=== PATIENT | female | born 1965 | race Caucasian/White ===

== ENCOUNTER 2021-03-14 08:14 | Inpatient (IN) | payer SELFPAY ==
[2021-03-14] MEDS ORDERED: EPINEPHrine 1 MG/10 ML Abboject SYRINGE ONE (08:22)
[2021-03-14] MEDS ORDERED: Fentanyl CADD 100 ML IV SCH (08:45)
[2021-03-14 09:05] LABS: Hemoglobin 12.4 g/dL (12.0-16.0); Mean Corpuscular HGB CONC 34.8 g/dL (32.0-36.0); Mean Corpuscular Hemoglobin 31.4 pg (27.0-31.0); Mean Corpuscular Volume 90.3 fL (78.0-98.0); Red Blood Cell (RBC) Count 3.95 mill/uL (4.20-5.40); White Blood Cell (WBC) Count 8.2 thou/uL (4.8-10.8)
[2021-03-14 09:15] LABS: ALT (SGPT) 57 U/L (8-55); AST (SGOT) 87 U/L (5-34); Albumin 3.5 g/dL (3.4-4.8); Alkaline Phosphatase 55 U/L (40-110); Anion Gap 15 mmol/L (10-20); BUN (Urea Nitrogen) 10 mg/dL (9.8-20.1); Bilirubin, Total 0.6 mg/dL (0.2-1.2); Calc. Creatinine Clearance 0 mL/min (70-130); Calcium 8.7 mg/dL (7.8-10.44); Carbon Dioxide 34 mmol/L (23-31); Chloride 76 mmol/L (98-107); Globulin 3.3 g/dL (2.4-3.5); Protein, Total 6.8 g/dL (5.8-8.1)
[2021-03-14 09:22] LABS: Analyzer IN Cardio ER; Base Excess (BEa) 7.2 mEq/L (-2.0 to +3.0); CO2 Tension 46.1 mmHg (35.0-45.0); Calcium, Ionized (arterial) 1.02 mmol/L (1.12-1.30); Carboxyhemoglobin (COHb) 0.1 gm% (0.0-3.0); Hemoglobin (Hb) 11.8 g/dL (12.0-16.0); O2 Tension (PaO2), arterial 127.1 mmHg (> 70.0); Potassium - ABG Lab 2.52 mmol/L (3.70-5.30); pH, Arterial 7.46 (7.35-7.45)
[2021-03-14 09:25] LABS: ALV-art Gradient 314.375 mmHg (0-20); Puncture Site RBA
[2021-03-14 09:27] LABS: #Monocytes 0.4 thou/uL (0.11-0.59); #Neutrophils 6.8 thou/uL (1.40-6.50); %Basophils 0.2 % (0.0-1.0); %Eosinophils 0.1 % (0.0-10.0); %Lymphocytes 11.8 % (21.0-51.0); %Monocytes 5.2 % (0.0-10.0); %Neutrophils 82.7 % (42.0-75.0); Large Platelets MODERATE; MDiff Complete? YES; Mean Platelet Volume 11.1 fL (7.4-10.4); Platelet Count 106 thou/uL (130-400); Platelet Morphology Comment Appears Decreased; RBC Morphology Normal
[2021-03-14 09:33] LABS: Glucose 173 mg/dL (83-110); Sodium 122 mmol/L (136-145)
[2021-03-14 09:43] LABS: CKMB 19.4 ng/mL (0-6.6)
[2021-03-14] MEDS ORDERED: Ondansetron PF 4 MG/2 ML Vial IVP PRN (11:06)
[2021-03-14] MEDS ORDERED: Sodium Chloride 0.9% 1,000 ML IV SCH (11:15)
[2021-03-14] MEDS ORDERED: DISCONTINUE PREVIOUS NARCOTIC PAIN MEDICATIONS AND BENZODIAZEPINES FS SCH (11:15)
[2021-03-14] MEDS ORDERED: Morphine 2 MG/ML VIAL SLOW IVP PRN (11:15)
[2021-03-14] MEDS ORDERED: Fentanyl BOLUS 250 ML IVPB PRN (11:15)
[2021-03-14] MEDS ORDERED: Ventilator Sedation Protocol 1 EACH FS SCH (11:15)
[2021-03-14] MEDS ORDERED: Propofol BOLUS 1,000 MG/100 ML VIAL IV PRN (11:15)
[2021-03-14 11:29] LABS: SARS-CoV-2 NAA Rapid Test DETECTED (NotDetected)
[2021-03-14 12:01] LABS: Bilirubin Negative (Negative); Blood, Urine Trace (Negative); Clarity Clear (Clear); Glucose, Urine (Dipstick) Normal (Negative); Ketone, Urine 60 mg/dL (Negative); Leukocyte Negative Leu/uL (Negative); Nitrite Negative (Negative); Protein, Urine (Dipstick) 70 mg/dL (Neg-Trace); RBC/HPF 0-3 HPF (0-3); Specific Gravity, Urine 1.022 (1.002-1.036); pH, Urine 6.5 (5.0-9.0)
[2021-03-14 12:02] LABS: Bacteria/HPF None Seen HPF (None Seen); Squamous Epithelial 0-3 HPF (0-3)
[2021-03-14 12:07] LABS: Lactic Acid 2.6 mmol/L (0.5-2.2)
[2021-03-14] MEDS ORDERED: Cefepime 2 GM VIAL ONE (14:43)
[2021-03-14] MEDS ORDERED: Dextrose 50% Abboject 50 ML SYRINGE ONE (14:43)
[2021-03-14] MEDS ORDERED: methylPREDNISolone Sod Succ 40 MG VIAL ONE (14:44)
[2021-03-14] MEDS: Cefepime 2 GM in Sodium Chloride 0.9% 100 ML IVPB SCH ×2 (14:48→22:32)
[2021-03-14] MEDS: NS 0.9% w/ 20 MEQ KCL 1,000 ML/1,000 ML BAG IV SCH ×2 (14:49→16:07)
[2021-03-14] MEDS: methylPREDNISolone Sod Succ 40 MG VIAL IVP SCH ×3 (14:49→22:33)
[2021-03-14] MEDS ORDERED: Vecuronium 10 MG VIAL ONE (15:17)
[2021-03-14 15:26] LABS: Anion Gap 11 mmol/L (10-20); BUN (Urea Nitrogen) 14 mg/dL (9.8-20.1); Calc. Creatinine Clearance 0 mL/min (70-130); Calcium 8.2 mg/dL (7.8-10.44); Carbon Dioxide 35 mmol/L (22-29); Chloride 79 mmol/L (98-107); Glucose 256 mg/dL (70-105); Sodium 122 mmol/L (136-145)
[2021-03-14 15:40] LABS: Potassium 2.9 mmol/L (3.5-5.1)
[2021-03-14] MEDS ORDERED: ALBUTEROL PO SCH (15:45)
[2021-03-14] MEDS ORDERED: Electrolyte Replacement Protocol 1 EACH FS ONE (16:03)
[2021-03-14] MEDS: Lorazepam 2 MG/ML VIAL SLOW IVP PRN (16:08)
[2021-03-14] MEDS ORDERED: Norepinephrine 8 MG/0.9% NS 250 ML ONE (16:09)
[2021-03-14] MEDS ORDERED: Potassium Chloride 40 MEQ in Premix Bag 1 BAG IVPB SCH ×4 (16:15→21:00)
[2021-03-14] MEDS ORDERED: Norepinephrine 8 MG/0.9% NS 250 ML IVPB SCH (16:15)
[2021-03-14] MEDS ORDERED: Electrolyte Replacement Protocol FS PRN (16:30)
[2021-03-14] MEDS ORDERED: Potassium Chloride 40 MEQ in Sodium Chloride 0.9% 250 ML 250 ML IVPB SCH (16:30)
[2021-03-14 17:52] LABS: Actual Bicarbonate (HCO3a) 33.5 mEq/L (22-28); Base Excess (BEa) 6.8 mEq/L (-2.0 to +3.0); CO2 Tension 58.4 mmHg (35.0-45.0); Calcium, Ionized (arterial) 1.05 mmol/L (1.12-1.30); Hemoglobin (Hb) 11.7 g/dL (12.0-16.0); O2 Tension (PaO2), arterial 74.1 mmHg (80.0-100.0); Potassium - ABG Lab 2.84 mmol/L (3.70-5.30); pH, Arterial 7.38 (7.35-7.45)
[2021-03-14 18:27] LABS: Puncture Site LRA
[2021-03-14] MEDS: Vecuronium 10 MG VIAL IVP PRN (19:25)
[2021-03-14] MEDS ORDERED: Fentanyl CADD 100 ML ONE (20:12)
[2021-03-14] MEDS: Fentanyl CADD 100 ML IV SCH (20:33)
[2021-03-14 22:18] LABS: Potassium 3.6 mmol/L (3.5-5.1)
[2021-03-14] MEDS: Propofol 1,000 MG/100 ML VIAL IV PRN (22:33)
[2021-03-15] MEDS: Vecuronium 10 MG VIAL IVP PRN ×5 (00:30→20:53)
[2021-03-15] MEDS: NS 0.9% w/ 20 MEQ KCL 1,000 ML/1,000 ML BAG IV SCH ×3 (02:27→22:14)
[2021-03-15 04:16] LABS: #Basophils 0.1 thou/uL (0.0-0.2); #Lymphocytes 0.3 thou/uL (1.20-3.40); #Monocytes 0.5 thou/uL (0.11-0.59); #Neutrophils 9.3 thou/uL (1.40-6.50); %Basophils 0.9 % (0.0-1.0); %Eosinophils 0.1 % (0.0-10.0); %Lymphocytes 2.7 % (21.0-51.0); %Monocytes 4.5 % (0.0-10.0); %Neutrophils 91.9 % (42.0-75.0); Hemoglobin 11.2 g/dL (12.0-16.0); Mean Corpuscular HGB CONC 33.5 g/dL (32.0-36.0); Mean Corpuscular Hemoglobin 30.7 pg (27.0-31.0); Mean Corpuscular Volume 91.6 fL (78.0-98.0); Mean Platelet Volume 10.2 fL (7.4-10.4); Platelet Count 143 thou/uL (130-400); Red Blood Cell (RBC) Count 3.66 mill/uL (4.20-5.40); White Blood Cell (WBC) Count 10.1 thou/uL (4.8-10.8)
[2021-03-15 04:36] LABS: Anion Gap 11 mmol/L (10-20); BUN (Urea Nitrogen) 12 mg/dL (9.8-20.1); Calc. Creatinine Clearance 145 mL/min (70-130); Calcium 8.2 mg/dL (7.8-10.44); Carbon Dioxide 33 mmol/L (22-29); Chloride 89 mmol/L (98-107); Glucose 223 mg/dL (70-105); Potassium 3.6 mmol/L (3.5-5.1); Sodium 129 mmol/L (136-145)
[2021-03-15] MEDS: methylPREDNISolone Sod Succ 40 MG VIAL IVP SCH ×4 (04:57→23:26)
[2021-03-15] MEDS: Propofol 1,000 MG/100 ML VIAL IV PRN ×3 (05:12→22:13)
[2021-03-15 07:19] LABS: Actual Bicarbonate (HCO3a) 28.9 mEq/L (22-28); Base Excess (BEa) 2.9 mEq/L (-2.0 to +3.0); CO2 Tension 50.9 mmHg (35.0-45.0); Calcium, Ionized (arterial) 1.11 mmol/L (1.12-1.30); Carboxyhemoglobin (COHb) 0.3 gm% (0.0-3.0); Hemoglobin (Hb) 11.3 g/dL (12.0-16.0); O2 Tension (PaO2), arterial 63.4 mmHg (80.0-100.0); Potassium - ABG Lab 3.69 mmol/L (3.70-5.30); pH, Arterial 7.37 (7.35-7.45)
[2021-03-15 07:32] LABS: ALV-art Gradient 229.475 mmHg (0-20); Puncture Site LRA
[2021-03-15] MEDS ORDERED: Pantoprazole 40 MG VIAL IVP SCH (09:00)
[2021-03-15] MEDS: Enoxaparin Sodium 40 MG/0.4 ML SYRINGE SC SCH (09:50)
[2021-03-15] MEDS ORDERED: Fentanyl CADD 100 ML ONE ×2 (10:10→22:17)
[2021-03-15] MEDS: Fentanyl CADD 100 ML IV SCH ×2 (10:12→22:20)
[2021-03-15] MEDS: Cefepime 2 GM in Sodium Chloride 0.9% 100 ML IVPB SCH ×2 (12:06→23:26)
[2021-03-15] MEDS ORDERED: HumaLOG 300 UNITS/3 ML VIAL SC PRN (17:28)
[2021-03-15] MEDS ORDERED: Dextrose 50% Abboject 50 ML SYRINGE SLOW IVP PRN (17:28)
[2021-03-15] MEDS ORDERED: Dextrose 5% in Water 1,000 ML IV PRN (17:28)
[2021-03-15] MEDS: Cholecalciferol 1,000 UNITS (25 MCG) TAB PO SCH (20:38)
[2021-03-15] MEDS: Zinc Sulfate 220 MG CAP PO SCH (20:38)
[2021-03-15] MEDS: HumaLOG 300 UNITS/3 ML VIAL SC PRN (22:43)
[2021-03-16] MEDS: Vecuronium 10 MG VIAL IVP PRN ×5 (01:19→20:05)
[2021-03-16] MEDS: methylPREDNISolone Sod Succ 40 MG VIAL IVP SCH ×4 (04:27→19:57)
[2021-03-16 04:46] LABS: #Lymphocytes 0.4 thou/uL (1.20-3.40); #Monocytes 0.4 thou/uL (0.11-0.59); #Neutrophils 9.3 thou/uL (1.40-6.50); %Eosinophils 0.1 % (0.0-10.0); %Lymphocytes 3.9 % (21.0-51.0); %Monocytes 3.9 % (0.0-10.0); %Neutrophils 92.1 % (42.0-75.0); Mean Corpuscular HGB CONC 34.2 g/dL (32.0-36.0); Mean Corpuscular Hemoglobin 32.1 pg (27.0-31.0); Mean Platelet Volume 9.5 fL (7.4-10.4); Platelet Count 143 thou/uL (130-400); RBC Distribution Width 12.2 % (11.5-14.5); White Blood Cell (WBC) Count 10.1 thou/uL (4.8-10.8)
[2021-03-16 05:10] LABS: Anion Gap 6 mmol/L (10-20); BUN (Urea Nitrogen) 15 mg/dL (9.8-20.1); Calc. Creatinine Clearance 152 mL/min (70-130); Carbon Dioxide 32 mmol/L (22-29); Chloride 96 mmol/L (98-107); Glucose 150 mg/dL (70-105); Magnesium 2.3 mg/dL (1.6-2.6); Potassium 4.2 mmol/L (3.5-5.1); Sodium 130 mmol/L (136-145)
[2021-03-16 05:14] LABS: Phosphorus 1.5 mg/dL (2.3-4.7)
[2021-03-16] MEDS: Propofol 1,000 MG/100 ML VIAL IV PRN ×3 (05:29→21:55)
[2021-03-16 06:03] LABS: Hemoglobin A1c 5.3 % (4.0-6.0)
[2021-03-16] MEDS: HumaLOG 300 UNITS/3 ML VIAL SC PRN ×4 (06:19→22:39)
[2021-03-16] MEDS ORDERED: Potassium Phosphate 22 MMOL in Sodium Chloride 0.9% 250 ML 250 ML IVPB SCH (06:30)
[2021-03-16 07:10] LABS: Actual Bicarbonate (HCO3a) 28.8 mEq/L (22-28); Calcium, Ionized (arterial) 1.15 mmol/L (1.12-1.30); Carboxyhemoglobin (COHb) 0.3 gm% (0.0-3.0); Hemoglobin (Hb) 12.3 g/dL (12.0-16.0); O2 Tension (PaO2), arterial 75.1 mmHg (80.0-100.0); Potassium - ABG Lab 4.43 mmol/L (3.70-5.30); pH, Arterial 7.29 (7.35-7.45)
[2021-03-16 07:13] LABS: CO2 Tension 61.6 mmHg (35.0-45.0)
[2021-03-16 07:14] LABS: Puncture Site LRA
[2021-03-16] MEDS ORDERED: Fentanyl CADD 0 ML ONE ×2 (07:32→07:33)
[2021-03-16] MEDS: Fentanyl CADD 100 ML IV SCH ×2 (07:39→18:51)
[2021-03-16] MEDS: NS 0.9% w/ 20 MEQ KCL 1,000 ML/1,000 ML BAG IV SCH ×2 (07:40→18:38)
[2021-03-16] MEDS: Enoxaparin Sodium 40 MG/0.4 ML SYRINGE SC SCH (09:45)
[2021-03-16] MEDS: Ascorbic Acid 500 mg Chewable Tablet PO SCH (09:46)
[2021-03-16] MEDS: Pantoprazole 40 MG GRANULES PACKET PO SCH (09:49)
[2021-03-16] MEDS: Cefepime 2 GM in Sodium Chloride 0.9% 100 ML IVPB SCH (13:22)
[2021-03-16] MEDS ORDERED: Fentanyl CADD 100 ML ONE ×2 (18:20)
[2021-03-16] MEDS: Montelukast Sodium 10 mg Tablet PER TUBE SCH (19:57)
[2021-03-16] MEDS: Cholecalciferol 1,000 UNITS (25 MCG) TAB PO SCH (19:57)
[2021-03-16] MEDS: Zinc Sulfate 220 MG CAP PO SCH (19:57)
[2021-03-17] MEDS: Vecuronium 10 MG VIAL IVP PRN ×2 (02:08→04:54)
[2021-03-17] MEDS: Cefepime 2 GM in Sodium Chloride 0.9% 100 ML IVPB SCH ×3 (02:08→23:14)
[2021-03-17] MEDS: methylPREDNISolone Sod Succ 40 MG VIAL IVP SCH ×4 (03:19→21:33)
[2021-03-17] MEDS: NS 0.9% w/ 20 MEQ KCL 1,000 ML/1,000 ML BAG IV SCH (03:21)
[2021-03-17 04:16] LABS: Anion Gap 7 mmol/L (10-20); BUN (Urea Nitrogen) 19 mg/dL (9.8-20.1); CRP (Inflammatory) 0.65 mg/dL (= or < 0.5); Calc. Creatinine Clearance 160 mL/min (70-130); Calcium 7.8 mg/dL (7.8-10.44); Carbon Dioxide 29 mmol/L (22-29); Chloride 102 mmol/L (98-107); Glucose 165 mg/dL (70-105); Potassium 5.3 mmol/L (3.5-5.1); Sodium 133 mmol/L (136-145)
[2021-03-17 04:25] LABS: Phosphorus 1.3 mg/dL (2.3-4.7)
[2021-03-17] MEDS ORDERED: Fentanyl CADD 100 ML ONE ×2 (04:36→16:22)
[2021-03-17] MEDS: Fentanyl CADD 100 ML IV SCH ×2 (04:38→16:29)
[2021-03-17 04:43] LABS: Band 5 % (5-11); Hemoglobin 9.7 g/dL (12.0-16.0); Lymphocytes 2 % (21-51); MDiff Complete? YES; Mean Corpuscular HGB CONC 33.4 g/dL (32.0-36.0); Mean Corpuscular Hemoglobin 31.9 pg (27.0-31.0); Mean Corpuscular Volume 95.5 fL (78.0-98.0); Mean Platelet Volume 9.1 fL (7.4-10.4); Metamyelocyte 1 % (0-0); Monocytes 4 % (0-10); Myelocyte 1 % (0-0); Neutrophil 87 % (42-75); Platelet Count 158 thou/uL (130-400); Platelet Morphology Comment Appears Adequate; RBC Distribution Width 12.6 % (11.5-14.5); RBC Morphology Normal; Red Blood Cell (RBC) Count 3.03 mill/uL (4.20-5.40); White Blood Cell (WBC) Count 8.9 thou/uL (4.8-10.8)
[2021-03-17] MEDS: Propofol 1,000 MG/100 ML VIAL IV PRN ×3 (04:53→19:43)
[2021-03-17 07:29] LABS: Actual Bicarbonate (HCO3a) 25.7 mEq/L (22-28); Base Excess (BEa) -0.4 mEq/L (-2.0 to +3.0); CO2 Tension 48.9 mmHg (35.0-45.0); Calcium, Ionized (arterial) 1.14 mmol/L (1.12-1.30); Carboxyhemoglobin (COHb) 0.2 gm% (0.0-3.0); Hemoglobin (Hb) 10.4 g/dL (12.0-16.0); O2 Tension (PaO2), arterial 62.7 mmHg (80.0-100.0); Potassium - ABG Lab 5.38 mmol/L (3.70-5.30); pH, Arterial 7.34 (7.35-7.45)
[2021-03-17 07:40] LABS: Puncture Site RRA
[2021-03-17 07:41] LABS: ALV-art Gradient 154.245 mmHg (0-20)
[2021-03-17] MEDS: Ascorbic Acid 500 mg Chewable Tablet PO SCH (08:32)
[2021-03-17] MEDS: Pantoprazole 40 MG GRANULES PACKET PO SCH (08:32)
[2021-03-17] MEDS: Enoxaparin Sodium 40 MG/0.4 ML SYRINGE SC SCH (08:32)
[2021-03-17] MEDS: HumaLOG 300 UNITS/3 ML VIAL SC PRN (12:42)
[2021-03-17] MEDS: Lorazepam 2 MG/ML VIAL SLOW IVP PRN (14:57)
[2021-03-17] MEDS: Montelukast Sodium 10 mg Tablet PER TUBE SCH (21:33)
[2021-03-17] MEDS: Zinc Sulfate 220 MG CAP PO SCH (21:33)
[2021-03-17] MEDS: Cholecalciferol 1,000 UNITS (25 MCG) TAB PO SCH (21:33)
[2021-03-18] MEDS: methylPREDNISolone Sod Succ 40 MG VIAL IVP SCH ×4 (02:30→22:03)
[2021-03-18] MEDS: Propofol 1,000 MG/100 ML VIAL IV PRN ×3 (03:29→19:50)
[2021-03-18] MEDS: HumaLOG 300 UNITS/3 ML VIAL SC PRN ×2 (03:30→10:17)
[2021-03-18] MEDS ORDERED: Fentanyl CADD 100 ML ONE ×2 (04:57→17:44)
[2021-03-18 05:07] LABS: Band 5 % (5-11); Hemoglobin 10.1 g/dL (12.0-16.0); Lymphocytes 5 % (21-51); MDiff Complete? YES; Mean Corpuscular HGB CONC 32.8 g/dL (32.0-36.0); Mean Corpuscular Hemoglobin 31.7 pg (27.0-31.0); Mean Corpuscular Volume 96.5 fL (78.0-98.0); Mean Platelet Volume 8.9 fL (7.4-10.4); Monocytes 8 % (0-10); Neutrophil 82 % (42-75); Platelet Count 200 thou/uL (130-400); Platelet Morphology Comment Appears Adequate
[2021-03-18 05:09] LABS: Anion Gap 10 mmol/L (10-20); BUN (Urea Nitrogen) 34 mg/dL (9.8-20.1); CRP (Inflammatory) 0.54 mg/dL (= or < 0.5); Calc. Creatinine Clearance 137 mL/min (70-130); Calcium 8.5 mg/dL (7.8-10.44); Carbon Dioxide 29 mmol/L (22-29); Chloride 102 mmol/L (98-107); Glucose 165 mg/dL (70-105); Potassium 6.1 mmol/L (3.5-5.1); Sodium 135 mmol/L (136-145)
[2021-03-18 05:22] LABS: Anion Gap 10 mmol/L (10-20); BUN (Urea Nitrogen) 33 mg/dL (9.8-20.1); Calc. Creatinine Clearance 138 mL/min (70-130); Carbon Dioxide 29 mmol/L (22-29); Chloride 103 mmol/L (98-107); Potassium 6.1 mmol/L (3.5-5.1); Sodium 136 mmol/L (136-145)
[2021-03-18 05:23] LABS: ALT (SGPT) 57 U/L (8-55); AST (SGOT) 36 U/L (5-34); Albumin 3.5 g/dL (3.5-5.0); Alkaline Phosphatase 55 U/L (40-110); Bilirubin, Total 0.5 mg/dL (0.2-1.2); Calcium 8.3 mg/dL (7.8-10.44); Globulin 3.1 g/dL (2.4-3.5); Glucose 169 mg/dL (70-105); Phosphorus 2.8 mg/dL (2.3-4.7); Protein, Total 6.6 g/dL (6.0-8.3)
[2021-03-18] MEDS: Lorazepam 2 MG/ML VIAL SLOW IVP PRN ×3 (07:14→17:48)
[2021-03-18] MEDS: Vecuronium 10 MG VIAL IVP PRN ×3 (07:14→17:48)
[2021-03-18 07:28] LABS: Base Excess (BEa) -0.4 mEq/L (-2.0 to +3.0); Carboxyhemoglobin (COHb) 0.1 gm% (0.0-3.0); Hemoglobin (Hb) 10.6 g/dL (12.0-16.0); O2 Tension (PaO2), arterial 79.3 mmHg (80.0-100.0); Potassium - ABG Lab 5.57 mmol/L (3.70-5.30)
[2021-03-18 07:39] LABS: CO2 Tension 67.3 mmHg (35.0-45.0); Puncture Site RRA; pH, Arterial 7.24 (7.35-7.45)
[2021-03-18 07:40] LABS: ALV-art Gradient 114.645 mmHg (0-20)
[2021-03-18] MEDS: Enoxaparin Sodium 40 MG/0.4 ML SYRINGE SC SCH (08:57)
[2021-03-18] MEDS: Pantoprazole 40 MG GRANULES PACKET PO SCH (08:57)
[2021-03-18] MEDS: Ascorbic Acid 500 mg Chewable Tablet PO SCH (08:57)
[2021-03-18] MEDS: Cefepime 2 GM in Sodium Chloride 0.9% 100 ML IVPB SCH (11:08)
[2021-03-18] MEDS: Fentanyl CADD 100 ML IV SCH (17:48)
[2021-03-18] MEDS: Zinc Sulfate 220 MG CAP PO SCH (21:53)
[2021-03-18] MEDS: Montelukast Sodium 10 mg Tablet PER TUBE SCH (21:53)
[2021-03-18] MEDS: Cholecalciferol 1,000 UNITS (25 MCG) TAB PO SCH (21:53)
[2021-03-19] MEDS: Cefepime 2 GM in Sodium Chloride 0.9% 100 ML IVPB SCH ×3 (01:35→23:18)
[2021-03-19] MEDS: Propofol 1,000 MG/100 ML VIAL IV PRN ×6 (01:37→21:45)
[2021-03-19] MEDS: methylPREDNISolone Sod Succ 40 MG VIAL IVP SCH ×4 (04:02→21:08)
[2021-03-19 05:21] LABS: Phosphorus 2.1 mg/dL (2.3-4.7)
[2021-03-19] MEDS ORDERED: Fentanyl CADD 100 ML ONE ×2 (05:39→16:47)
[2021-03-19 06:33] LABS: ALT (SGPT) 81 U/L (8-55); AST (SGOT) 43 U/L (5-34); Albumin 3.2 g/dL (3.5-5.0); Alkaline Phosphatase 51 U/L (40-110); Anion Gap 10 mmol/L (10-20); BUN (Urea Nitrogen) 41 mg/dL (9.8-20.1); Bilirubin, Total 0.4 mg/dL (0.2-1.2); Calc. Creatinine Clearance 146 mL/min (70-130); Calcium 8.5 mg/dL (7.8-10.44); Carbon Dioxide 31 mmol/L (22-29); Chloride 101 mmol/L (98-107); Globulin 2.8 g/dL (2.4-3.5); Glucose 184 mg/dL (70-105); Potassium 4.5 mmol/L (3.5-5.1); Sodium 137 mmol/L (136-145)
[2021-03-19 07:24] LABS: Actual Bicarbonate (HCO3a) 28.2 mEq/L (22-28); Base Excess (BEa) 3.3 mEq/L (-2.0 to +3.0); CO2 Tension 44.5 mmHg (35.0-45.0); Calcium, Ionized (arterial) 1.17 mmol/L (1.12-1.30); Carboxyhemoglobin (COHb) 0.3 gm% (0.0-3.0); Hemoglobin (Hb) 11.5 g/dL (12.0-16.0); O2 Tension (PaO2), arterial 72.8 mmHg (80.0-100.0); Potassium - ABG Lab 4.76 mmol/L (3.70-5.30); pH, Arterial 7.42 (7.35-7.45)
[2021-03-19 07:37] LABS: ALV-art Gradient 149.645 mmHg (0-20); Puncture Site RRA
[2021-03-19] MEDS: Enoxaparin Sodium 40 MG/0.4 ML SYRINGE SC SCH ×2 (09:58→21:08)
[2021-03-19] MEDS: Ascorbic Acid 500 mg Chewable Tablet PO SCH (09:58)
[2021-03-19] MEDS: Pantoprazole 40 MG GRANULES PACKET PO SCH (09:59)
[2021-03-19] MEDS: HumaLOG 300 UNITS/3 ML VIAL SC PRN ×3 (10:36→21:30)
[2021-03-19] MEDS: Lorazepam 2 MG/ML VIAL SLOW IVP PRN ×2 (14:17→16:09)
[2021-03-19] MEDS: Vecuronium 10 MG VIAL IVP PRN ×3 (14:18→21:07)
[2021-03-19] MEDS: Fentanyl CADD 100 ML IV SCH (16:49)
[2021-03-19] MEDS: Zinc Sulfate 220 MG CAP PO SCH (21:08)
[2021-03-19] MEDS: Cholecalciferol 1,000 UNITS (25 MCG) TAB PO SCH (21:08)
[2021-03-19] MEDS: Montelukast Sodium 10 mg Tablet PER TUBE SCH (21:09)
[2021-03-20] MEDS: Vecuronium 10 MG VIAL IVP PRN ×5 (00:20→20:42)
[2021-03-20] MEDS: Propofol 1,000 MG/100 ML VIAL IV PRN ×6 (02:07→20:42)
[2021-03-20] MEDS: methylPREDNISolone Sod Succ 40 MG VIAL IVP SCH ×4 (02:07→20:43)
[2021-03-20] MEDS ORDERED: Fentanyl CADD 100 ML ONE ×2 (03:26→15:08)
[2021-03-20] MEDS: Fentanyl CADD 100 ML IV SCH ×2 (03:32→15:13)
[2021-03-20] MEDS: HumaLOG 300 UNITS/3 ML VIAL SC PRN ×4 (05:03→22:04)
[2021-03-20 05:47] LABS: ALT (SGPT) 71 U/L (8-55); AST (SGOT) 26 U/L (5-34); Albumin 3.1 g/dL (3.5-5.0); Alkaline Phosphatase 42 U/L (40-110); Anion Gap 12 mmol/L (10-20); BUN (Urea Nitrogen) 43 mg/dL (9.8-20.1); Bilirubin, Total 0.3 mg/dL (0.2-1.2); CRP (Inflammatory) Less than 0.50 mg/dL (= or < 0.5); Calc. Creatinine Clearance 158 mL/min (70-130); Calcium 8.5 mg/dL (7.8-10.44); Carbon Dioxide 32 mmol/L (22-29); Chloride 99 mmol/L (98-107); Globulin 2.7 g/dL (2.4-3.5); Glucose 187 mg/dL (70-105); Potassium 4.7 mmol/L (3.5-5.1); Protein, Total 5.8 g/dL (6.0-8.3); Sodium 138 mmol/L (136-145)
[2021-03-20] MEDS ORDERED: Furosemide 40 MG/4 ML VIAL SLOW IVP SCH (07:45)
[2021-03-20] MEDS: Pantoprazole 40 MG GRANULES PACKET PO SCH (08:16)
[2021-03-20] MEDS: Ascorbic Acid 500 mg Chewable Tablet PO SCH (08:16)
[2021-03-20] MEDS: Enoxaparin Sodium 40 MG/0.4 ML SYRINGE SC SCH ×2 (08:17→20:42)
[2021-03-20 08:29] LABS: Actual Bicarbonate (HCO3a) 32.3 mEq/L (22-28); Base Excess (BEa) 7.2 mEq/L (-2.0 to +3.0); CO2 Tension 48.7 mmHg (35.0-45.0); Calcium, Ionized (arterial) 1.16 mmol/L (1.12-1.30); Carboxyhemoglobin (COHb) 0.3 gm% (0.0-3.0); Hemoglobin (Hb) 9.5 g/dL (12.0-16.0); O2 Tension (PaO2), arterial 75.3 mmHg (80.0-100.0); Potassium - ABG Lab 4.91 mmol/L (3.70-5.30); pH, Arterial 7.44 (7.35-7.45)
[2021-03-20 09:01] LABS: ALV-art Gradient 149.025 mmHg (0-20); Puncture Site LRA
[2021-03-20] MEDS: Lorazepam 2 MG/ML VIAL SLOW IVP PRN ×4 (10:05→16:40)
[2021-03-20] MEDS: Cefepime 2 GM in Sodium Chloride 0.9% 100 ML IVPB SCH ×2 (11:24→23:18)
[2021-03-20] MEDS: Montelukast Sodium 10 mg Tablet PER TUBE SCH (20:42)
[2021-03-20] MEDS: Zinc Sulfate 220 MG CAP PO SCH (20:42)
[2021-03-20] MEDS: Cholecalciferol 1,000 UNITS (25 MCG) TAB PO SCH (20:55)
[2021-03-21] MEDS: Propofol 1,000 MG/100 ML VIAL IV PRN ×7 (00:02→21:54)
[2021-03-21] MEDS: Vecuronium 10 MG VIAL IVP PRN (00:02)
[2021-03-21] MEDS ORDERED: Fentanyl CADD 100 ML ONE ×3 (01:35→21:02)
[2021-03-21] MEDS: Fentanyl CADD 100 ML IV SCH ×3 (01:56→21:15)
[2021-03-21] MEDS: methylPREDNISolone Sod Succ 40 MG VIAL IVP SCH ×4 (03:56→20:20)
[2021-03-21] MEDS: HumaLOG 300 UNITS/3 ML VIAL SC PRN (04:36)
[2021-03-21 05:31] LABS: Band 9 % (5-11); Hemoglobin 9.7 g/dL (12.0-16.0); Lymphocytes 11 % (21-51); MDiff Complete? YES; Mean Corpuscular HGB CONC 33.3 g/dL (32.0-36.0); Mean Corpuscular Volume 96.1 fL (78.0-98.0); Mean Platelet Volume 8.5 fL (7.4-10.4); Metamyelocyte 3 % (0-0); Monocytes 7 % (0-10); Myelocyte 3 % (0-0); Neutrophil 65 % (42-75); Platelet Count 237 thou/uL (130-400); Platelet Morphology Comment Appears Adequate; RBC Distribution Width 13.4 % (11.5-14.5); RBC Morphology Normal; Reactive Lymphocytes 2 % (0-10); Red Blood Cell (RBC) Count 3.02 mill/uL (4.20-5.40); White Blood Cell (WBC) Count 8.4 thou/uL (4.8-10.8)
[2021-03-21 05:55] LABS: ALT (SGPT) 91 U/L (8-55); AST (SGOT) 47 U/L (5-34); Albumin 3.2 g/dL (3.5-5.0); Alkaline Phosphatase 48 U/L (40-110); Anion Gap 11 mmol/L (10-20); BUN (Urea Nitrogen) 43 mg/dL (9.8-20.1); Bilirubin, Total 0.4 mg/dL (0.2-1.2); CRP (Inflammatory) Less than 0.50 mg/dL (= or < 0.5); Calc. Creatinine Clearance 157 mL/min (70-130); Calcium 8.7 mg/dL (7.8-10.44); Carbon Dioxide 35 mmol/L (22-29); Chloride 98 mmol/L (98-107); Globulin 2.7 g/dL (2.4-3.5); Glucose 164 mg/dL (70-105); Potassium 4.5 mmol/L (3.5-5.1); Protein, Total 5.9 g/dL (6.0-8.3); Sodium 139 mmol/L (136-145)
[2021-03-21] MEDS ORDERED: Budesonide 0.5 MG/2 ML NEB NEB SCH (08:00)
[2021-03-21 08:25] LABS: Base Excess (BEa) 7.7 mEq/L (-2.0 to +3.0); CO2 Tension 59.9 mmHg (35.0-45.0); Calcium, Ionized (arterial) 1.15 mmol/L (1.12-1.30); Carboxyhemoglobin (COHb) 0.9 gm% (0.0-3.0); O2 Tension (PaO2), arterial 60.6 mmHg (80.0-100.0); Potassium - ABG Lab 4.81 mmol/L (3.70-5.30); pH, Arterial 7.39 (7.35-7.45)
[2021-03-21 08:48] LABS: Puncture Site LBA
[2021-03-21 08:49] LABS: ALV-art Gradient 149.725 mmHg (0-20)
[2021-03-21] MEDS: Enoxaparin Sodium 40 MG/0.4 ML SYRINGE SC SCH ×2 (09:44→19:33)
[2021-03-21] MEDS: Ascorbic Acid 500 mg Chewable Tablet PO SCH (09:45)
[2021-03-21] MEDS: Pantoprazole 40 MG GRANULES PACKET PO SCH (09:45)
[2021-03-21] MEDS: Lorazepam 2 MG/ML VIAL SLOW IVP PRN ×5 (11:13→21:37)
[2021-03-21] MEDS: Budesonide 0.5 MG/2 ML NEB NEB SCH (18:40)
[2021-03-21] MEDS: Zinc Sulfate 220 MG CAP PO SCH (19:33)
[2021-03-21] MEDS: Cholecalciferol 1,000 UNITS (25 MCG) TAB PO SCH (19:33)
[2021-03-21] MEDS: Montelukast Sodium 10 mg Tablet PER TUBE SCH (19:33)
[2021-03-22] MEDS: Propofol 1,000 MG/100 ML VIAL IV PRN ×6 (01:32→22:33)
[2021-03-22] MEDS: methylPREDNISolone Sod Succ 40 MG VIAL IVP SCH ×4 (03:31→20:24)
[2021-03-22] MEDS ORDERED: Fentanyl CADD 100 ML ONE ×2 (06:31→16:54)
[2021-03-22] MEDS: Fentanyl CADD 100 ML IV SCH (07:02)
[2021-03-22] MEDS: Budesonide 0.5 MG/2 ML NEB NEB SCH ×2 (07:06→18:10)
[2021-03-22 07:10] LABS: Actual Bicarbonate (HCO3a) 37.2 mEq/L (22-28); Base Excess (BEa) 11.6 mEq/L (-2.0 to +3.0); CO2 Tension 54.4 mmHg (35.0-45.0); Calcium, Ionized (arterial) 1.14 mmol/L (1.12-1.30); Carboxyhemoglobin (COHb) 0.3 gm% (0.0-3.0); Hemoglobin (Hb) 10.3 g/dL (12.0-16.0); O2 Tension (PaO2), arterial 69.1 mmHg (80.0-100.0); pH, Arterial 7.45 (7.35-7.45)
[2021-03-22 07:12] LABS: Puncture Site RRA
[2021-03-22] MEDS: Pantoprazole 40 MG GRANULES PACKET PO SCH (08:33)
[2021-03-22] MEDS: Enoxaparin Sodium 40 MG/0.4 ML SYRINGE SC SCH ×2 (08:34→20:24)
[2021-03-22] MEDS: Ascorbic Acid 500 mg Chewable Tablet PO SCH (08:34)
[2021-03-22] MEDS: Lorazepam 2 MG/ML VIAL SLOW IVP PRN (16:35)
[2021-03-22] MEDS: Zinc Sulfate 220 MG CAP PO SCH (20:24)
[2021-03-22] MEDS: Montelukast Sodium 10 mg Tablet PER TUBE SCH (20:24)
[2021-03-22] MEDS: Cholecalciferol 1,000 UNITS (25 MCG) TAB PO SCH (20:24)
[2021-03-22] MEDS: HumaLOG 300 UNITS/3 ML VIAL SC PRN (21:40)
[2021-03-23] MEDS: Propofol 1,000 MG/100 ML VIAL IV PRN ×7 (01:55→23:04)
[2021-03-23] MEDS ORDERED: Fentanyl CADD 0 ML ONE (02:42)
[2021-03-23] MEDS: methylPREDNISolone Sod Succ 40 MG VIAL IVP SCH ×5 (02:43→23:13)
[2021-03-23] MEDS: Fentanyl CADD 100 ML IV SCH ×3 (02:43→22:07)
[2021-03-23 05:04] LABS: Anion Gap 11 mmol/L (10-20); BUN (Urea Nitrogen) 42 mg/dL (9.8-20.1); Calc. Creatinine Clearance 182 mL/min (70-130); Calcium 8.6 mg/dL (7.8-10.44); Carbon Dioxide 33 mmol/L (22-29); Chloride 96 mmol/L (98-107); Glucose 140 mg/dL (70-105); Potassium 4.2 mmol/L (3.5-5.1); Sodium 136 mmol/L (136-145)
[2021-03-23 05:29] LABS: Band 9 % (5-11); Hemoglobin 9.4 g/dL (12.0-16.0); Lymphocytes 15 % (21-51); MDiff Complete? YES; Mean Corpuscular HGB CONC 33.3 g/dL (32.0-36.0); Mean Corpuscular Hemoglobin 31.8 pg (27.0-31.0); Mean Corpuscular Volume 95.5 fL (78.0-98.0); Mean Platelet Volume 8.9 fL (7.4-10.4); Metamyelocyte 3 % (0-0); Monocytes 4 % (0-10); Neutrophil 69 % (42-75); Platelet Count 212 thou/uL (130-400); Platelet Morphology Comment Appears Adequate; RBC Distribution Width 13.3 % (11.5-14.5); RBC Morphology Normal; Red Blood Cell (RBC) Count 2.97 mill/uL (4.20-5.40)
[2021-03-23 07:14] LABS: Actual Bicarbonate (HCO3a) 33.3 mEq/L (22-28); Base Excess (BEa) 7.9 mEq/L (-2.0 to +3.0); CO2 Tension 51.1 mmHg (35.0-45.0); Calcium, Ionized (arterial) 1.14 mmol/L (1.12-1.30); Hemoglobin (Hb) 10.6 g/dL (12.0-16.0); O2 Tension (PaO2), arterial 75.2 mmHg (80.0-100.0); Potassium - ABG Lab 4.21 mmol/L (3.70-5.30); pH, Arterial 7.43 (7.35-7.45)
[2021-03-23 07:15] LABS: Puncture Site RRA
[2021-03-23 07:16] LABS: ALV-art Gradient 146.125 mmHg (0-20)
[2021-03-23] MEDS: Budesonide 0.5 MG/2 ML NEB NEB SCH ×2 (08:25→18:39)
[2021-03-23] MEDS: Pantoprazole 40 MG GRANULES PACKET PO SCH (08:50)
[2021-03-23] MEDS: Enoxaparin Sodium 40 MG/0.4 ML SYRINGE SC SCH ×2 (08:50→20:04)
[2021-03-23] MEDS: Ascorbic Acid 500 mg Chewable Tablet PO SCH (08:50)
[2021-03-23] MEDS ORDERED: Fentanyl CADD 100 ML ONE ×2 (11:01→22:02)
[2021-03-23] MEDS: Montelukast Sodium 10 mg Tablet PER TUBE SCH (21:11)
[2021-03-23] MEDS: Zinc Sulfate 220 MG CAP PO SCH (21:11)
[2021-03-23] MEDS: Cholecalciferol 1,000 UNITS (25 MCG) TAB PO SCH (21:11)
[2021-03-24] MEDS: Propofol 1,000 MG/100 ML VIAL IV PRN ×6 (02:45→21:07)
[2021-03-24] MEDS: HumaLOG 300 UNITS/3 ML VIAL SC PRN (04:06)
[2021-03-24 05:05] LABS: Hemoglobin 9.4 g/dL (12.0-16.0); Mean Corpuscular HGB CONC 32.3 g/dL (32.0-36.0); Mean Corpuscular Hemoglobin 30.8 pg (27.0-31.0); Mean Corpuscular Volume 95.6 fL (78.0-98.0); Mean Platelet Volume 8.7 fL (7.4-10.4); Platelet Count 204 thou/uL (130-400); RBC Distribution Width 13.4 % (11.5-14.5); Red Blood Cell (RBC) Count 3.05 mill/uL (4.20-5.40); White Blood Cell (WBC) Count 10.3 thou/uL (4.8-10.8)
[2021-03-24 05:09] LABS: Anion Gap 9 mmol/L (10-20); BUN (Urea Nitrogen) 35 mg/dL (9.8-20.1); Calc. Creatinine Clearance 188 mL/min (70-130); Calcium 8.3 mg/dL (7.8-10.44); Carbon Dioxide 35 mmol/L (22-29); Chloride 95 mmol/L (98-107); Glucose 149 mg/dL (70-105); Potassium 4.1 mmol/L (3.5-5.1); Sodium 135 mmol/L (136-145)
[2021-03-24] MEDS: methylPREDNISolone Sod Succ 40 MG VIAL IVP SCH ×3 (06:01→17:04)
[2021-03-24] MEDS: Budesonide 0.5 MG/2 ML NEB NEB SCH ×2 (07:15→18:57)
[2021-03-24 07:31] LABS: Actual Bicarbonate (HCO3a) 34.7 mEq/L (22-28); Base Excess (BEa) 9.7 mEq/L (-2.0 to +3.0); CO2 Tension 49.8 mmHg (35.0-45.0); Hemoglobin (Hb) 9.7 g/dL (12.0-16.0); O2 Tension (PaO2), arterial 92.8 mmHg (80.0-100.0); Potassium - ABG Lab 4.08 mmol/L (3.70-5.30); pH, Arterial 7.46 (7.35-7.45)
[2021-03-24 07:33] LABS: Puncture Site RRA
[2021-03-24] MEDS ORDERED: Fentanyl CADD 100 ML ONE ×2 (07:59→19:05)
[2021-03-24 08:03] LABS: Band 10 % (5-11); Lymphocytes 6 % (21-51); MDiff Complete? YES; Metamyelocyte 1 % (0-0); Monocytes 2 % (0-10); Neutrophil 81 % (42-75); Platelet Morphology Comment Appears Adequate; Polychromasia SLIGHT = 2-3 cells (100X) (0-2/hpf)
[2021-03-24] MEDS ORDERED: acetaZOLAMIDE Sodium 500 mg Vial IVP SCH (08:15)
[2021-03-24] MEDS: Pantoprazole 40 MG GRANULES PACKET PO SCH (08:23)
[2021-03-24] MEDS: Fentanyl CADD 100 ML IV SCH ×2 (08:23→19:09)
[2021-03-24] MEDS: Ascorbic Acid 500 mg Chewable Tablet PO SCH (08:24)
[2021-03-24] MEDS: Enoxaparin Sodium 40 MG/0.4 ML SYRINGE SC SCH ×2 (08:24→21:12)
[2021-03-24] MEDS ORDERED: methylPREDNISolone Sod Succ 40 MG VIAL ONE (16:54)
[2021-03-24] MEDS: Cholecalciferol 1,000 UNITS (25 MCG) TAB PO SCH (21:12)
[2021-03-24] MEDS: Zinc Sulfate 220 MG CAP PO SCH (21:13)
[2021-03-24] MEDS: Montelukast Sodium 10 mg Tablet PER TUBE SCH (21:13)
[2021-03-25] MEDS: methylPREDNISolone Sod Succ 40 MG VIAL IVP SCH ×5 (00:50→23:54)
[2021-03-25] MEDS: Propofol 1,000 MG/100 ML VIAL IV PRN ×5 (00:50→21:15)
[2021-03-25 04:19] LABS: #Lymphocytes 0.6 thou/uL (1.20-3.40); #Monocytes 0.5 thou/uL (0.11-0.59); #Neutrophils 11.3 thou/uL (1.40-6.50); %Basophils 0.2 % (0.0-1.0); %Eosinophils 0.4 % (0.0-10.0); %Lymphocytes 4.7 % (21.0-51.0); %Monocytes 3.6 % (0.0-10.0); %Neutrophils 91.1 % (42.0-75.0); Hemoglobin 9.9 g/dL (12.0-16.0); Mean Corpuscular HGB CONC 32.8 g/dL (32.0-36.0); Mean Corpuscular Hemoglobin 31.6 pg (27.0-31.0); Mean Corpuscular Volume 96.2 fL (78.0-98.0); Mean Platelet Volume 8.7 fL (7.4-10.4); Platelet Count 170 thou/uL (130-400); RBC Distribution Width 13.3 % (11.5-14.5); Red Blood Cell (RBC) Count 3.14 mill/uL (4.20-5.40); White Blood Cell (WBC) Count 12.5 thou/uL (4.8-10.8)
[2021-03-25 04:41] LABS: Anion Gap 11 mmol/L (10-20); BUN (Urea Nitrogen) 32 mg/dL (9.8-20.1); Calc. Creatinine Clearance 189 mL/min (70-130); Calcium 8.6 mg/dL (7.8-10.44); Carbon Dioxide 33 mmol/L (22-29); Chloride 95 mmol/L (98-107); Glucose 117 mg/dL (70-105); Potassium 3.3 mmol/L (3.5-5.1); Sodium 136 mmol/L (136-145)
[2021-03-25] MEDS ORDERED: Potassium Chloride 40 MEQ in Premix Bag 1 BAG IVPB SCH (05:00)
[2021-03-25] MEDS ORDERED: Fentanyl CADD 100 ML ONE ×2 (05:05→16:33)
[2021-03-25] MEDS: Fentanyl CADD 100 ML IV SCH ×2 (05:09→16:38)
[2021-03-25] MEDS: Budesonide 0.5 MG/2 ML NEB NEB SCH ×2 (07:27→18:31)
[2021-03-25 07:44] LABS: Actual Bicarbonate (HCO3a) 32.9 mEq/L (22-28); Base Excess (BEa) 6.6 mEq/L (-2.0 to +3.0); CO2 Tension 56.3 mmHg (35.0-45.0); Calcium, Ionized (arterial) 1.15 mmol/L (1.12-1.30); Carboxyhemoglobin (COHb) 0.1 gm% (0.0-3.0); Hemoglobin (Hb) 9.9 g/dL (12.0-16.0); O2 Tension (PaO2), arterial 97.2 mmHg (80.0-100.0); Potassium - ABG Lab 4.24 mmol/L (3.70-5.30); pH, Arterial 7.38 (7.35-7.45)
[2021-03-25 07:47] LABS: ALV-art Gradient 117.625 mmHg (0-20); Puncture Site RRA
[2021-03-25] MEDS: Pantoprazole 40 MG GRANULES PACKET PO SCH (09:35)
[2021-03-25] MEDS: Ascorbic Acid 500 mg Chewable Tablet PO SCH (09:35)
[2021-03-25] MEDS: Enoxaparin Sodium 40 MG/0.4 ML SYRINGE SC SCH ×2 (09:35→20:32)
[2021-03-25] MEDS: fentaNYL 100 mcg/hour Patch TD SCH (10:00)
[2021-03-25 13:34] LABS: Actual Bicarbonate (HCO3a) 32.1 mEq/L (22-28); CO2 Tension 48.6 mmHg (35.0-45.0); Calcium, Ionized (arterial) 1.14 mmol/L (1.12-1.30); Carboxyhemoglobin (COHb) 0.3 gm% (0.0-3.0); Hemoglobin (Hb) 9.9 g/dL (12.0-16.0); Potassium - ABG Lab 3.84 mmol/L (3.70-5.30); pH, Arterial 7.44 (7.35-7.45)
[2021-03-25 13:39] LABS: Puncture Site LRA
[2021-03-25] MEDS: Cholecalciferol 1,000 UNITS (25 MCG) TAB PO SCH (20:32)
[2021-03-25] MEDS: Lorazepam 2 MG/ML VIAL SLOW IVP PRN (20:32)
[2021-03-25] MEDS: Montelukast Sodium 10 mg Tablet PER TUBE SCH (20:33)
[2021-03-25] MEDS: Zinc Sulfate 220 MG CAP PO SCH (20:33)
[2021-03-26] MEDS: Propofol 1,000 MG/100 ML VIAL IV PRN ×2 (02:51→17:13)
[2021-03-26] MEDS: Lorazepam 2 MG/ML VIAL SLOW IVP PRN ×2 (02:52→21:39)
[2021-03-26 04:24] LABS: #Lymphocytes 0.3 thou/uL (1.20-3.40); #Monocytes 0.4 thou/uL (0.11-0.59); #Neutrophils 8.7 thou/uL (1.40-6.50); %Eosinophils 0.3 % (0.0-10.0); %Lymphocytes 3.6 % (21.0-51.0); %Monocytes 4.1 % (0.0-10.0); Hemoglobin 9.8 g/dL (12.0-16.0); Mean Corpuscular HGB CONC 32.8 g/dL (32.0-36.0); Mean Corpuscular Hemoglobin 31.5 pg (27.0-31.0); Mean Corpuscular Volume 96.2 fL (78.0-98.0); Mean Platelet Volume 8.9 fL (7.4-10.4); Platelet Count 132 thou/uL (130-400); RBC Distribution Width 13.3 % (11.5-14.5); Red Blood Cell (RBC) Count 3.11 mill/uL (4.20-5.40); White Blood Cell (WBC) Count 9.5 thou/uL (4.8-10.8)
[2021-03-26 04:47] LABS: Phosphorus 2.8 mg/dL (2.3-4.7)
[2021-03-26 04:52] LABS: ALT (SGPT) 61 U/L (8-55); AST (SGOT) 25 U/L (5-34); Albumin 3.2 g/dL (3.5-5.0); Alkaline Phosphatase 44 U/L (40-110); Anion Gap 9 mmol/L (10-20); BUN (Urea Nitrogen) 31 mg/dL (9.8-20.1); Bilirubin, Total 0.5 mg/dL (0.2-1.2); Calc. Creatinine Clearance 198 mL/min (70-130); Calcium 8.6 mg/dL (7.8-10.44); Carbon Dioxide 35 mmol/L (22-29); Chloride 98 mmol/L (98-107); Globulin 2.6 g/dL (2.4-3.5); Glucose 147 mg/dL (70-105); Magnesium 2.2 mg/dL (1.6-2.6); Potassium 3.9 mmol/L (3.5-5.1); Protein, Total 5.8 g/dL (6.0-8.3); Sodium 138 mmol/L (136-145)
[2021-03-26] MEDS: methylPREDNISolone Sod Succ 40 MG VIAL IVP SCH ×4 (05:42→23:16)
[2021-03-26] MEDS: Budesonide 0.5 MG/2 ML NEB NEB SCH ×2 (07:09→18:17)
[2021-03-26 07:38] LABS: Actual Bicarbonate (HCO3a) 35.7 mEq/L (22-28); Base Excess (BEa) 9.5 mEq/L (-2.0 to +3.0); CO2 Tension 57.8 mmHg (35.0-45.0); Calcium, Ionized (arterial) 1.16 mmol/L (1.12-1.30); Carboxyhemoglobin (COHb) 0.3 gm% (0.0-3.0); Hemoglobin (Hb) 10.3 g/dL (12.0-16.0); O2 Tension (PaO2), arterial 99.3 mmHg (80.0-100.0); Potassium - ABG Lab 4.07 mmol/L (3.70-5.30); pH, Arterial 7.41 (7.35-7.45)
[2021-03-26 07:41] LABS: Puncture Site RRA
[2021-03-26] MEDS: Enoxaparin Sodium 40 MG/0.4 ML SYRINGE SC SCH ×2 (09:21→21:38)
[2021-03-26] MEDS: Ascorbic Acid 500 mg Chewable Tablet PO SCH (09:21)
[2021-03-26] MEDS: Pantoprazole 40 MG GRANULES PACKET PO SCH (09:22)
[2021-03-26] MEDS ORDERED: Fentanyl CADD 100 ML ONE (11:11)
[2021-03-26] MEDS: Fentanyl CADD 100 ML IV SCH (11:22)
[2021-03-26] MEDS: Senokot S 8.6-50 MG TAB PO SCH (21:39)
[2021-03-26] MEDS: Montelukast Sodium 10 mg Tablet PER TUBE SCH (21:39)
[2021-03-26] MEDS: Zinc Sulfate 220 MG CAP PO SCH (21:39)
[2021-03-26] MEDS: Cholecalciferol 1,000 UNITS (25 MCG) TAB PO SCH (21:42)
[2021-03-26] MEDS: Acetaminophen 325 MG TAB PO PRN (23:18)
[2021-03-27 04:30] LABS: Hemoglobin 9.8 g/dL (12.0-16.0); Mean Corpuscular HGB CONC 32.7 g/dL (32.0-36.0); Mean Corpuscular Hemoglobin 31.5 pg (27.0-31.0); Mean Corpuscular Volume 96.2 fL (78.0-98.0); RBC Distribution Width 13.1 % (11.5-14.5); Red Blood Cell (RBC) Count 3.11 mill/uL (4.20-5.40); White Blood Cell (WBC) Count 9.2 thou/uL (4.8-10.8)
[2021-03-27 04:36] LABS: ALT (SGPT) 65 U/L (8-55); AST (SGOT) 31 U/L (5-34); Albumin 3.1 g/dL (3.5-5.0); Alkaline Phosphatase 46 U/L (40-110); Anion Gap 10 mmol/L (10-20); BUN (Urea Nitrogen) 31 mg/dL (9.8-20.1); Bilirubin, Total 0.6 mg/dL (0.2-1.2); Calc. Creatinine Clearance 192 mL/min (70-130); Calcium 8.7 mg/dL (7.8-10.44); Carbon Dioxide 33 mmol/L (22-29); Chloride 97 mmol/L (98-107); Globulin 2.8 g/dL (2.4-3.5); Glucose 159 mg/dL (70-105); Magnesium 1.9 mg/dL (1.6-2.6); Protein, Total 5.9 g/dL (6.0-8.3); Sodium 136 mmol/L (136-145)
[2021-03-27 04:43] LABS: Phosphorus 2.8 mg/dL (2.3-4.7)
[2021-03-27] MEDS ORDERED: Magnesium 2 GM/50 ML 2 GM in Premix Bag 1 BAG IVPB SCH (05:00)
[2021-03-27 05:07] LABS: #Lymphocytes 0.5 thou/uL (1.20-3.40); #Monocytes 0.4 thou/uL (0.11-0.59); #Neutrophils 8.4 thou/uL (1.40-6.50); %Eosinophils 0.2 % (0.0-10.0); %Lymphocytes 5.3 % (21.0-51.0); %Neutrophils 90.6 % (42.0-75.0); Platelet Count 115 thou/uL (130-400); Platelet Morphology Comment Appears Decreased
[2021-03-27] MEDS: methylPREDNISolone Sod Succ 40 MG VIAL IVP SCH ×4 (05:19→23:53)
[2021-03-27] MEDS: Lorazepam 2 MG/ML VIAL SLOW IVP PRN ×3 (06:27→23:53)
[2021-03-27] MEDS: Budesonide 0.5 MG/2 ML NEB NEB SCH ×2 (07:09→18:54)
[2021-03-27 07:24] LABS: Actual Bicarbonate (HCO3a) 32.4 mEq/L (22-28); Base Excess (BEa) 7.4 mEq/L (-2.0 to +3.0); CO2 Tension 48.4 mmHg (35.0-45.0); Calcium, Ionized (arterial) 1.15 mmol/L (1.12-1.30); Carboxyhemoglobin (COHb) 0.9 gm% (0.0-3.0); Hemoglobin (Hb) 9.6 g/dL (12.0-16.0); O2 Tension (PaO2), arterial 87.2 mmHg (80.0-100.0); Potassium - ABG Lab 3.84 mmol/L (3.70-5.30); pH, Arterial 7.44 (7.35-7.45)
[2021-03-27 07:27] LABS: Puncture Site RRA
[2021-03-27] MEDS: Senokot S 8.6-50 MG TAB PO SCH ×2 (09:20→19:34)
[2021-03-27] MEDS: Pantoprazole 40 MG GRANULES PACKET PO SCH (09:20)
[2021-03-27] MEDS: Polyethylene Glycol 3350 17 GM Packet PER TUBE SCH (09:20)
[2021-03-27] MEDS: Enoxaparin Sodium 40 MG/0.4 ML SYRINGE SC SCH ×2 (09:20→19:34)
[2021-03-27] MEDS: Ascorbic Acid 500 mg Chewable Tablet PO SCH (09:27)
[2021-03-27] MEDS ORDERED: Propofol 1,000 MG/100 ML VIAL IV ONE ×2 (09:31→18:22)
[2021-03-27] MEDS ORDERED: Propofol BOLUS 1,000 MG/100 ML VIAL IV PRN (18:30)
[2021-03-27] MEDS: Montelukast Sodium 10 mg Tablet PER TUBE SCH (19:34)
[2021-03-27] MEDS: Cholecalciferol 1,000 UNITS (25 MCG) TAB PO SCH (19:34)
[2021-03-27] MEDS: Dexmedetomidine 1,000 MCG in Sodium Chloride 0.9% 250 ML 240 ML IVPB SCH (19:34)
[2021-03-27] MEDS: Zinc Sulfate 220 MG CAP PO SCH (19:34)
[2021-03-28] MEDS: Propofol 1,000 MG/100 ML VIAL IV PRN ×3 (03:20→23:00)
[2021-03-28] MEDS: Dexmedetomidine 1,000 MCG in Sodium Chloride 0.9% 250 ML 240 ML IVPB SCH ×2 (03:20→17:02)
[2021-03-28] MEDS ORDERED: Fentanyl CADD 100 ML ONE (04:10)
[2021-03-28] MEDS: Fentanyl CADD 100 ML IV SCH (04:16)
[2021-03-28 04:56] LABS: #Lymphocytes 0.4 thou/uL (1.20-3.40); #Monocytes 0.2 thou/uL (0.11-0.59); #Neutrophils 4.9 thou/uL (1.40-6.50); %Basophils 0.8 % (0.0-1.0); %Lymphocytes 7.5 % (21.0-51.0); %Monocytes 4.3 % (0.0-10.0); %Neutrophils 87.3 % (42.0-75.0); Hemoglobin 9.1 g/dL (12.0-16.0); Mean Corpuscular HGB CONC 33.4 g/dL (32.0-36.0); Mean Corpuscular Hemoglobin 32.3 pg (27.0-31.0); Mean Corpuscular Volume 96.5 fL (78.0-98.0); Mean Platelet Volume 9.1 fL (7.4-10.4); Platelet Count 106 thou/uL (130-400); Red Blood Cell (RBC) Count 2.82 mill/uL (4.20-5.40); White Blood Cell (WBC) Count 5.6 thou/uL (4.8-10.8)
[2021-03-28 05:28] LABS: Anion Gap 7 mmol/L (10-20); BUN (Urea Nitrogen) 28 mg/dL (9.8-20.1); Calc. Creatinine Clearance 228 mL/min (70-130); Calcium 8.3 mg/dL (7.8-10.44); Carbon Dioxide 37 mmol/L (22-29); Chloride 97 mmol/L (98-107); Glucose 151 mg/dL (70-105); Sodium 137 mmol/L (136-145)
[2021-03-28] MEDS: Budesonide 0.5 MG/2 ML NEB NEB SCH ×2 (06:55→18:26)
[2021-03-28 07:09] LABS: Actual Bicarbonate (HCO3a) 35.8 mEq/L (22-28); Base Excess (BEa) 9.7 mEq/L (-2.0 to +3.0); CO2 Tension 57.5 mmHg (35.0-45.0); Calcium, Ionized (arterial) 1.12 mmol/L (1.12-1.30); Carboxyhemoglobin (COHb) 0.2 gm% (0.0-3.0); Hemoglobin (Hb) 10.1 g/dL (12.0-16.0); O2 Tension (PaO2), arterial 85.2 mmHg (80.0-100.0); Potassium - ABG Lab 3.71 mmol/L (3.70-5.30); pH, Arterial 7.41 (7.35-7.45)
[2021-03-28 07:12] LABS: ALV-art Gradient 128.125 mmHg (0-20); Puncture Site LRA
[2021-03-28] MEDS ORDERED: acetaZOLAMIDE Sodium 500 mg Vial IVP SCH (09:00)
[2021-03-28] MEDS: Lorazepam 2 MG/ML VIAL SLOW IVP PRN ×2 (10:02→23:00)
[2021-03-28] MEDS: Ascorbic Acid 500 mg Chewable Tablet PO SCH (10:10)
[2021-03-28] MEDS: Enoxaparin Sodium 40 MG/0.4 ML SYRINGE SC SCH ×2 (10:10→20:29)
[2021-03-28] MEDS: Senokot S 8.6-50 MG TAB PO SCH ×2 (10:10→20:28)
[2021-03-28] MEDS: Polyethylene Glycol 3350 17 GM Packet PER TUBE SCH (10:10)
[2021-03-28] MEDS: Pantoprazole 40 MG GRANULES PACKET PO SCH (10:10)
[2021-03-28] MEDS: methylPREDNISolone Sod Succ 40 MG VIAL IVP SCH ×2 (10:40→20:34)
[2021-03-28] MEDS: fentaNYL 100 mcg/hour Patch TD SCH (10:58)
[2021-03-28] MEDS: Cholecalciferol 1,000 UNITS (25 MCG) TAB PO SCH (20:28)
[2021-03-28] MEDS: Montelukast Sodium 10 mg Tablet PER TUBE SCH (20:29)
[2021-03-28] MEDS: Zinc Sulfate 220 MG CAP PO SCH (20:30)
[2021-03-29] MEDS: Lorazepam 2 MG/ML VIAL SLOW IVP PRN ×2 (01:47→21:52)
[2021-03-29 04:34] LABS: #Lymphocytes 0.4 thou/uL (1.20-3.40); #Monocytes 0.3 thou/uL (0.11-0.59); %Basophils 0.1 % (0.0-1.0); %Eosinophils 0.1 % (0.0-10.0); %Lymphocytes 5.9 % (21.0-51.0); %Monocytes 4.1 % (0.0-10.0); %Neutrophils 89.9 % (42.0-75.0); Mean Corpuscular HGB CONC 33.4 g/dL (32.0-36.0); Mean Corpuscular Hemoglobin 32.4 pg (27.0-31.0); Platelet Count 104 thou/uL (130-400); RBC Distribution Width 13.1 % (11.5-14.5); Red Blood Cell (RBC) Count 2.79 mill/uL (4.20-5.40); White Blood Cell (WBC) Count 6.7 thou/uL (4.8-10.8)
[2021-03-29 04:48] LABS: Anion Gap 12 mmol/L (10-20); BUN (Urea Nitrogen) 24 mg/dL (9.8-20.1); Calc. Creatinine Clearance 219 mL/min (70-130); Calcium 8.4 mg/dL (7.8-10.44); Carbon Dioxide 31 mmol/L (22-29); Chloride 99 mmol/L (98-107); Glucose 133 mg/dL (70-105); Potassium 3.5 mmol/L (3.5-5.1); Sodium 138 mmol/L (136-145)
[2021-03-29] MEDS ORDERED: Potassium Bicarbonate/Cit Ac 20 MEQ TAB PER TUBE SCH (06:30)
[2021-03-29] MEDS: Budesonide 0.5 MG/2 ML NEB NEB SCH ×2 (07:15→18:12)
[2021-03-29 07:25] LABS: Actual Bicarbonate (HCO3a) 27.7 mEq/L (22-28); Base Excess (BEa) 1.8 mEq/L (-2.0 to +3.0); Calcium, Ionized (arterial) 1.17 mmol/L (1.12-1.30); Carboxyhemoglobin (COHb) 0.6 gm% (0.0-3.0); Hemoglobin (Hb) 11.7 g/dL (12.0-16.0); O2 Tension (PaO2), arterial 96.1 mmHg (80.0-100.0); Potassium - ABG Lab 3.76 mmol/L (3.70-5.30); pH, Arterial 7.37 (7.35-7.45)
[2021-03-29 07:27] LABS: Puncture Site RRA
[2021-03-29] MEDS ORDERED: acetaZOLAMIDE Sodium 500 mg Vial IVP SCH (09:00)
[2021-03-29] MEDS: Ascorbic Acid 500 mg Chewable Tablet PO SCH (09:09)
[2021-03-29] MEDS: Pantoprazole 40 MG GRANULES PACKET PO SCH (09:09)
[2021-03-29] MEDS: Enoxaparin Sodium 40 MG/0.4 ML SYRINGE SC SCH ×2 (09:09→21:51)
[2021-03-29] MEDS: Senokot S 8.6-50 MG TAB PO SCH ×2 (09:09→21:51)
[2021-03-29] MEDS: Polyethylene Glycol 3350 17 GM Packet PER TUBE SCH (09:09)
[2021-03-29] MEDS: methylPREDNISolone Sod Succ 40 MG VIAL IVP SCH ×2 (09:10→21:51)
[2021-03-29] MEDS: Dexmedetomidine 1,000 MCG in Sodium Chloride 0.9% 250 ML 240 ML IVPB SCH (11:41)
[2021-03-29] MEDS: Propofol 1,000 MG/100 ML VIAL IV PRN ×2 (11:41→21:52)
[2021-03-29 12:06] LABS: Potassium 3.7 mmol/L (3.5-5.1)
[2021-03-29] MEDS: Zinc Sulfate 220 MG CAP PO SCH (21:51)
[2021-03-29] MEDS: Cholecalciferol 1,000 UNITS (25 MCG) TAB PO SCH (21:51)
[2021-03-29] MEDS: Montelukast Sodium 10 mg Tablet PER TUBE SCH (21:51)
[2021-03-30 04:56] LABS: #Lymphocytes 0.3 thou/uL (1.20-3.40); #Monocytes 0.2 thou/uL (0.11-0.59); #Neutrophils 5.9 thou/uL (1.40-6.50); %Eosinophils 0.2 % (0.0-10.0); %Lymphocytes 5.3 % (21.0-51.0); %Monocytes 3.1 % (0.0-10.0); %Neutrophils 91.4 % (42.0-75.0); Hemoglobin 8.5 g/dL (12.0-16.0); Mean Corpuscular HGB CONC 32.1 g/dL (32.0-36.0); Mean Corpuscular Hemoglobin 30.9 pg (27.0-31.0); Mean Corpuscular Volume 96.4 fL (78.0-98.0); Mean Platelet Volume 9.1 fL (7.4-10.4); Platelet Count 98 thou/uL (130-400); RBC Distribution Width 13.1 % (11.5-14.5); Red Blood Cell (RBC) Count 2.74 mill/uL (4.20-5.40); White Blood Cell (WBC) Count 6.5 thou/uL (4.8-10.8)
[2021-03-30 05:10] LABS: Anion Gap 10 mmol/L (10-20); BUN (Urea Nitrogen) 19 mg/dL (9.8-20.1); Calc. Creatinine Clearance 234 mL/min (70-130); Calcium 8.1 mg/dL (7.8-10.44); Carbon Dioxide 32 mmol/L (22-29); Chloride 100 mmol/L (98-107); Glucose 120 mg/dL (70-105); Potassium 3.6 mmol/L (3.5-5.1); Sodium 138 mmol/L (136-145)
[2021-03-30] MEDS: Dexmedetomidine 1,000 MCG in Sodium Chloride 0.9% 250 ML 240 ML IVPB SCH ×2 (05:47→17:24)
[2021-03-30] MEDS: Budesonide 0.5 MG/2 ML NEB NEB SCH ×2 (07:15→18:54)
[2021-03-30 07:18] LABS: Actual Bicarbonate (HCO3a) 31.5 mEq/L (22-28); Base Excess (BEa) 5.6 mEq/L (-2.0 to +3.0); CO2 Tension 52.2 mmHg (35.0-45.0); Calcium, Ionized (arterial) 1.15 mmol/L (1.12-1.30); Carboxyhemoglobin (COHb) 0.1 gm% (0.0-3.0); Hemoglobin (Hb) 10.6 g/dL (12.0-16.0); O2 Tension (PaO2), arterial 134.6 mmHg (80.0-100.0); Potassium - ABG Lab 3.41 mmol/L (3.70-5.30)
[2021-03-30 07:19] LABS: Puncture Site RRA
[2021-03-30] MEDS ORDERED: DC Sedation Protocol FS SCH (07:54)
[2021-03-30] MEDS: Ascorbic Acid 500 mg Chewable Tablet PO SCH (08:34)
[2021-03-30] MEDS: methylPREDNISolone Sod Succ 40 MG VIAL IVP SCH ×2 (08:34→20:48)
[2021-03-30] MEDS: Enoxaparin Sodium 40 MG/0.4 ML SYRINGE SC SCH ×2 (08:34→20:48)
[2021-03-30] MEDS: Pantoprazole 40 MG GRANULES PACKET PO SCH (08:34)
[2021-03-30] MEDS: Senokot S 8.6-50 MG TAB PO SCH ×2 (08:35→20:49)
[2021-03-30] MEDS: Polyethylene Glycol 3350 17 GM Packet PER TUBE SCH (08:35)
[2021-03-30 11:07] LABS: Actual Bicarbonate (HCO3a) 33.6 mEq/L (22-28); Base Excess (BEa) 5.6 mEq/L (-2.0 to +3.0); CO2 Tension 70.2 mmHg (35.0-45.0); Calcium, Ionized (arterial) 1.19 mmol/L (1.12-1.30); Carboxyhemoglobin (COHb) 0.4 gm% (0.0-3.0); Hemoglobin (Hb) 10.3 g/dL (12.0-16.0); O2 Tension (PaO2), arterial 140.4 mmHg (80.0-100.0); Potassium - ABG Lab 3.57 mmol/L (3.70-5.30); Puncture Site RRA
[2021-03-30] MEDS: Montelukast Sodium 10 mg Tablet PER TUBE SCH (20:48)
[2021-03-30] MEDS: Cholecalciferol 1,000 UNITS (25 MCG) TAB PO SCH (20:48)
[2021-03-30] MEDS: Zinc Sulfate 220 MG CAP PO SCH (20:49)
[2021-03-31 04:45] LABS: #Lymphocytes 0.4 thou/uL (1.20-3.40); #Monocytes 0.2 thou/uL (0.11-0.59); #Neutrophils 6.2 thou/uL (1.40-6.50); %Basophils 0.1 % (0.0-1.0); %Eosinophils 0.1 % (0.0-10.0); %Lymphocytes 5.2 % (21.0-51.0); %Monocytes 2.7 % (0.0-10.0); Hemoglobin 8.3 g/dL (12.0-16.0); Mean Corpuscular HGB CONC 33.6 g/dL (32.0-36.0); Mean Corpuscular Hemoglobin 32.8 pg (27.0-31.0); Mean Corpuscular Volume 97.5 fL (78.0-98.0); Mean Platelet Volume 8.7 fL (7.4-10.4); Platelet Count 89 thou/uL (130-400); RBC Distribution Width 12.9 % (11.5-14.5); Red Blood Cell (RBC) Count 2.53 mill/uL (4.20-5.40); White Blood Cell (WBC) Count 6.7 thou/uL (4.8-10.8)
[2021-03-31 05:07] LABS: Anion Gap 11 mmol/L (10-20); BUN (Urea Nitrogen) 18 mg/dL (9.8-20.1); Calc. Creatinine Clearance 230 mL/min (70-130); Calcium 8.4 mg/dL (7.8-10.44); Carbon Dioxide 34 mmol/L (22-29); Chloride 100 mmol/L (98-107); Glucose 103 mg/dL (70-105); Potassium 3.7 mmol/L (3.5-5.1); Sodium 141 mmol/L (136-145)
[2021-03-31] MEDS ORDERED: Bisacodyl 10 MG SUPP PR PRN (07:43)
[2021-03-31] MEDS: Budesonide 0.5 MG/2 ML NEB NEB SCH ×2 (08:00→19:20)
[2021-03-31] MEDS: Dexmedetomidine 1,000 MCG in Sodium Chloride 0.9% 250 ML 240 ML IVPB SCH ×2 (08:03→21:24)
[2021-03-31] MEDS: Pantoprazole 40 MG VIAL IVP SCH (08:47)
[2021-03-31] MEDS: methylPREDNISolone Sod Succ 40 MG VIAL IVP SCH ×2 (08:47→21:26)
[2021-03-31] MEDS: Ascorbic Acid 500 mg Chewable Tablet PO SCH (09:14)
[2021-03-31] MEDS: Enoxaparin Sodium 40 MG/0.4 ML SYRINGE SC SCH (09:15)
[2021-03-31] MEDS: Senokot S 8.6-50 MG TAB PO SCH ×2 (09:15→21:24)
[2021-03-31] MEDS: Polyethylene Glycol 3350 17 GM Packet PER TUBE SCH (09:15)
[2021-03-31] MEDS: fentaNYL 100 mcg/hour Patch TD SCH (09:57)
[2021-03-31] MEDS ORDERED: Morphine 4 MG/ML VIAL ONE (12:21)
[2021-03-31] MEDS ORDERED: Propofol 1,000 MG/100 ML VIAL IV ONE (13:08)
[2021-03-31] MEDS: Propofol 1,000 MG/100 ML VIAL IV PRN ×2 (13:10→21:24)
[2021-03-31] MEDS ORDERED: Ventilator Sedation Protocol 1 EACH FS SCH (13:15)
[2021-03-31] MEDS ORDERED: Propofol BOLUS 1,000 MG/100 ML VIAL IV PRN (13:15)
[2021-03-31] MEDS ORDERED: Fentanyl BOLUS 250 ML IVPB PRN (13:15)
[2021-03-31] MEDS ORDERED: DISCONTINUE PREVIOUS NARCOTIC PAIN MEDICATIONS AND BENZODIAZEPINES FS SCH (13:15)
[2021-03-31] MEDS ORDERED: Succinylcholine 200 MG/10 ml SYRINGE FS ONE (13:31)
[2021-03-31] MEDS ORDERED: Fentanyl CADD 100 ML ONE (13:38)
[2021-03-31] MEDS ORDERED: Succinylcholine Chloride 200 MG/10 ML VIAL IVP SCH (13:45)
[2021-03-31] MEDS: Fentanyl CADD 100 ML IV SCH (13:46)
[2021-03-31] MEDS: Lorazepam 2 MG/ML VIAL SLOW IVP PRN ×3 (14:29→18:46)
[2021-03-31] MEDS: Morphine 4 MG/ML VIAL SLOW IVP PRN (15:03)
[2021-03-31] MEDS: Montelukast Sodium 10 mg Tablet PER TUBE SCH (21:24)
[2021-03-31] MEDS: Cholecalciferol 1,000 UNITS (25 MCG) TAB PO SCH (21:24)
[2021-03-31] MEDS: Acetaminophen 325 MG TAB PO PRN (21:53)
[2021-04-01 04:55] LABS: #Basophils 0.1 thou/uL (0.0-0.2); #Lymphocytes 0.3 thou/uL (1.20-3.40); #Monocytes 0.2 thou/uL (0.11-0.59); #Neutrophils 7.2 thou/uL (1.40-6.50); %Basophils 1.3 % (0.0-1.0); %Lymphocytes 3.6 % (21.0-51.0); %Monocytes 2.2 % (0.0-10.0); %Neutrophils 92.9 % (42.0-75.0); Hemoglobin 8.2 g/dL (12.0-16.0); Mean Corpuscular HGB CONC 33.5 g/dL (32.0-36.0); Mean Corpuscular Hemoglobin 32.4 pg (27.0-31.0); Mean Corpuscular Volume 96.7 fL (78.0-98.0); Mean Platelet Volume 9.5 fL (7.4-10.4); Platelet Count 84 thou/uL (130-400); RBC Distribution Width 13.1 % (11.5-14.5); Red Blood Cell (RBC) Count 2.53 mill/uL (4.20-5.40); White Blood Cell (WBC) Count 7.8 thou/uL (4.8-10.8)
[2021-04-01 05:16] LABS: Anion Gap 10 mmol/L (10-20); BUN (Urea Nitrogen) 23 mg/dL (9.8-20.1); Calc. Creatinine Clearance 195 mL/min (70-130); Calcium 8.7 mg/dL (7.8-10.44); Carbon Dioxide 32 mmol/L (22-29); Chloride 100 mmol/L (98-107); Glucose 157 mg/dL (70-105); Potassium 3.2 mmol/L (3.5-5.1); Sodium 139 mmol/L (136-145)
[2021-04-01] MEDS ORDERED: Potassium Chloride 40 MEQ in Premix Bag 1 BAG IVPB SCH (05:45)
[2021-04-01] MEDS: Budesonide 0.5 MG/2 ML NEB NEB SCH ×2 (07:06→19:32)
[2021-04-01 07:20] LABS: Actual Bicarbonate (HCO3a) 36.9 mEq/L (22-28); Base Excess (BEa) 12.7 mEq/L (-2.0 to +3.0); CO2 Tension 46.3 mmHg (35.0-45.0); Carboxyhemoglobin (COHb) 0.5 gm% (0.0-3.0); Hemoglobin (Hb) 8.7 g/dL (12.0-16.0); O2 Tension (PaO2), arterial 111.5 mmHg (80.0-100.0); Potassium - ABG Lab 3.47 mmol/L (3.70-5.30); pH, Arterial 7.52 (7.35-7.45)
[2021-04-01 07:21] LABS: ALV-art Gradient 151.475 mmHg (0-20); Puncture Site RRA
[2021-04-01] MEDS ORDERED: Electrolyte Replacement Protocol 1 EACH FS SCH (07:50)
[2021-04-01] MEDS: Polyethylene Glycol 3350 17 GM Packet PER TUBE SCH (10:30)
[2021-04-01] MEDS: Enoxaparin Sodium 40 MG/0.4 ML SYRINGE SC SCH (10:31)
[2021-04-01] MEDS: Pantoprazole 40 MG VIAL IVP SCH (10:31)
[2021-04-01] MEDS: Senokot S 8.6-50 MG TAB PO SCH ×2 (10:34→20:39)
[2021-04-01] MEDS: Ascorbic Acid 500 mg Chewable Tablet PO SCH (10:34)
[2021-04-01] MEDS: methylPREDNISolone Sod Succ 40 MG VIAL IVP SCH ×2 (10:36→20:39)
[2021-04-01] MEDS: Vecuronium 10 MG VIAL IVP PRN (11:35)
[2021-04-01] MEDS: HumaLOG 300 UNITS/3 ML VIAL SC PRN ×2 (11:45→17:02)
[2021-04-01] MEDS: Propofol 1,000 MG/100 ML VIAL IV PRN (14:00)
[2021-04-01] MEDS: Dexmedetomidine 1,000 MCG in Sodium Chloride 0.9% 250 ML 240 ML IVPB SCH (16:58)
[2021-04-01] MEDS ORDERED: Fentanyl CADD 100 ML ONE (18:27)
[2021-04-01] MEDS: Fentanyl CADD 100 ML IV SCH (18:28)
[2021-04-01] MEDS: Cholecalciferol 1,000 UNITS (25 MCG) TAB PO SCH (20:39)
[2021-04-01] MEDS: Montelukast Sodium 10 mg Tablet PER TUBE SCH (20:39)
[2021-04-01] MEDS: Lorazepam 2 MG/ML VIAL SLOW IVP PRN (23:37)
[2021-04-02 03:30] LABS: #Lymphocytes 0.3 thou/uL (1.20-3.40); #Monocytes 0.2 thou/uL (0.11-0.59); #Neutrophils 8.4 thou/uL (1.40-6.50); %Eosinophils 0.1 % (0.0-10.0); %Lymphocytes 2.8 % (21.0-51.0); %Monocytes 2.3 % (0.0-10.0); %Neutrophils 94.7 % (42.0-75.0); Hemoglobin 8.1 g/dL (12.0-16.0); Mean Corpuscular HGB CONC 32.2 g/dL (32.0-36.0); Mean Corpuscular Hemoglobin 31.7 pg (27.0-31.0); Mean Corpuscular Volume 98.4 fL (78.0-98.0); Mean Platelet Volume 9.1 fL (7.4-10.4); Platelet Count 73 thou/uL (130-400); Red Blood Cell (RBC) Count 2.55 mill/uL (4.20-5.40); White Blood Cell (WBC) Count 8.9 thou/uL (4.8-10.8)
[2021-04-02 03:49] LABS: Anion Gap 10 mmol/L (10-20); BUN (Urea Nitrogen) 18 mg/dL (9.8-20.1); Calc. Creatinine Clearance 209 mL/min (70-130); Calcium 8.7 mg/dL (7.8-10.44); Carbon Dioxide 35 mmol/L (22-29); Chloride 97 mmol/L (98-107); Glucose 166 mg/dL (70-105); Potassium 3.8 mmol/L (3.5-5.1); Sodium 138 mmol/L (136-145)
[2021-04-02] MEDS: Budesonide 0.5 MG/2 ML NEB NEB SCH ×2 (06:49→18:37)
[2021-04-02 07:05] LABS: Actual Bicarbonate (HCO3a) 36.4 mEq/L (22-28); Base Excess (BEa) 10.9 mEq/L (-2.0 to +3.0); CO2 Tension 54.7 mmHg (35.0-45.0); Carboxyhemoglobin (COHb) 0.5 gm% (0.0-3.0); Hemoglobin (Hb) 9.1 g/dL (12.0-16.0); O2 Tension (PaO2), arterial 105.6 mmHg (80.0-100.0); pH, Arterial 7.44 (7.35-7.45)
[2021-04-02 07:06] LABS: Calcium, Ionized (arterial) 1.15 mmol/L (1.12-1.30); Potassium - ABG Lab 3.51 mmol/L (3.70-5.30)
[2021-04-02 07:19] LABS: Puncture Site RRA
[2021-04-02 07:20] LABS: ALV-art Gradient 146.875 mmHg (0-20)
[2021-04-02] MEDS: Ascorbic Acid 500 mg Chewable Tablet PO SCH (08:47)
[2021-04-02] MEDS: Polyethylene Glycol 3350 17 GM Packet PER TUBE SCH (08:47)
[2021-04-02] MEDS: Pantoprazole 40 MG VIAL IVP SCH (08:47)
[2021-04-02] MEDS: Senokot S 8.6-50 MG TAB PO SCH ×2 (08:47→21:40)
[2021-04-02] MEDS: methylPREDNISolone Sod Succ 40 MG VIAL IVP SCH ×2 (08:55→21:40)
[2021-04-02] MEDS: Propofol 1,000 MG/100 ML VIAL IV PRN (09:43)
[2021-04-02] MEDS: Enoxaparin Sodium 40 MG/0.4 ML SYRINGE SC SCH (10:29)
[2021-04-02] MEDS ORDERED: Fentanyl CADD 100 ML ONE (10:32)
[2021-04-02] MEDS: Fentanyl CADD 100 ML IV SCH (11:00)
[2021-04-02] MEDS: Dexmedetomidine 1,000 MCG in Sodium Chloride 0.9% 250 ML 240 ML IVPB SCH (14:03)
[2021-04-02] MEDS: HumaLOG 300 UNITS/3 ML VIAL SC PRN (16:25)
[2021-04-02] MEDS: Montelukast Sodium 10 mg Tablet PER TUBE SCH (21:40)
[2021-04-02] MEDS: Cholecalciferol 1,000 UNITS (25 MCG) TAB PO SCH (21:41)
[2021-04-02] MEDS: Lorazepam 2 MG/ML VIAL SLOW IVP PRN (23:25)
[2021-04-02] MEDS: Vecuronium 10 MG VIAL IVP PRN (23:47)
[2021-04-03] MEDS: Fentanyl CADD 100 ML IV SCH ×2 (01:07→18:42)
[2021-04-03] MEDS: Lorazepam 2 MG/ML VIAL SLOW IVP PRN ×2 (04:44→11:10)
[2021-04-03 04:48] LABS: #Lymphocytes 0.1 thou/uL (1.20-3.40); #Monocytes 0.2 thou/uL (0.11-0.59); #Neutrophils 7.5 thou/uL (1.40-6.50); %Basophils 0.2 % (0.0-1.0); %Eosinophils 0.1 % (0.0-10.0); %Lymphocytes 1.4 % (21.0-51.0); %Monocytes 2.5 % (0.0-10.0); %Neutrophils 95.7 % (42.0-75.0); Hemoglobin 8.1 g/dL (12.0-16.0); Mean Corpuscular HGB CONC 32.3 g/dL (32.0-36.0); Mean Corpuscular Hemoglobin 31.9 pg (27.0-31.0); Mean Corpuscular Volume 98.9 fL (78.0-98.0); Mean Platelet Volume 9.1 fL (7.4-10.4); Platelet Count 82 thou/uL (130-400); Red Blood Cell (RBC) Count 2.54 mill/uL (4.20-5.40); White Blood Cell (WBC) Count 7.9 thou/uL (4.8-10.8)
[2021-04-03 05:03] LABS: BUN (Urea Nitrogen) 21 mg/dL (9.8-20.1); Calc. Creatinine Clearance 227 mL/min (70-130); Calcium 8.9 mg/dL (7.8-10.44); Glucose 146 mg/dL (70-105)
[2021-04-03 05:12] LABS: Anion Gap 15 mmol/L (10-20); Carbon Dioxide 32 mmol/L (22-29); Chloride 98 mmol/L (98-107); Sodium 141 mmol/L (136-145)
[2021-04-03] MEDS: Dexmedetomidine 1,000 MCG in Sodium Chloride 0.9% 250 ML 240 ML IVPB SCH ×2 (06:48→18:42)
[2021-04-03] MEDS: Budesonide 0.5 MG/2 ML NEB NEB SCH ×2 (07:38→18:12)
[2021-04-03 08:01] LABS: Actual Bicarbonate (HCO3a) 34.7 mEq/L (22-28); Base Excess (BEa) 8.1 mEq/L (-2.0 to +3.0); CO2 Tension 59.8 mmHg (35.0-45.0); Calcium, Ionized (arterial) 1.16 mmol/L (1.12-1.30); Carboxyhemoglobin (COHb) 0.2 gm% (0.0-3.0); Hemoglobin (Hb) 10.3 g/dL (12.0-16.0); O2 Tension (PaO2), arterial 153.3 mmHg (80.0-100.0); Potassium - ABG Lab 3.99 mmol/L (3.70-5.30); pH, Arterial 7.38 (7.35-7.45)
[2021-04-03 08:05] LABS: Puncture Site RRA
[2021-04-03] MEDS: Pantoprazole 40 MG VIAL IVP SCH (09:43)
[2021-04-03] MEDS: Ascorbic Acid 500 mg Chewable Tablet PO SCH (09:43)
[2021-04-03] MEDS: Senokot S 8.6-50 MG TAB PO SCH ×2 (09:44→21:48)
[2021-04-03] MEDS: methylPREDNISolone Sod Succ 40 MG VIAL IVP SCH ×2 (09:44→21:48)
[2021-04-03] MEDS: Polyethylene Glycol 3350 17 GM Packet PER TUBE SCH (09:45)
[2021-04-03] MEDS: Propofol 1,000 MG/100 ML VIAL IV PRN ×2 (09:49→21:48)
[2021-04-03] MEDS: HumaLOG 300 UNITS/3 ML VIAL SC PRN ×3 (10:25→22:11)
[2021-04-03] MEDS: Vecuronium 10 MG VIAL IVP PRN (10:27)
[2021-04-03] MEDS: fentaNYL 100 mcg/hour Patch TD SCH (10:29)
[2021-04-03] MEDS ORDERED: Fentanyl CADD 100 ML ONE (18:14)
[2021-04-03] MEDS: Cholecalciferol 1,000 UNITS (25 MCG) TAB PO SCH (21:48)
[2021-04-03] MEDS: Montelukast Sodium 10 mg Tablet PER TUBE SCH (21:48)
[2021-04-04] MEDS: HumaLOG 300 UNITS/3 ML VIAL SC PRN ×2 (04:14→17:53)
[2021-04-04 05:25] LABS: Band 46 % (5-11); Hemoglobin 8.1 g/dL (12.0-16.0); Hypochromia SLIGHT = 6-15 cells (100X) (0-5/hpf); Lymphocytes 8 % (21-51); MDiff Complete? YES; Mean Corpuscular HGB CONC 31.5 g/dL (32.0-36.0); Mean Corpuscular Hemoglobin 31.3 pg (27.0-31.0); Mean Corpuscular Volume 99.3 fL (78.0-98.0); Mean Platelet Volume 9.6 fL (7.4-10.4); Monocytes 8 % (0-10); Neutrophil 38 % (42-75); Platelet Count 75 thou/uL (130-400); Platelet Morphology Comment Appears Decreased; RBC Distribution Width 12.7 % (11.5-14.5); Red Blood Cell (RBC) Count 2.59 mill/uL (4.20-5.40); White Blood Cell (WBC) Count 2.9 thou/uL (4.8-10.8)
[2021-04-04 05:29] LABS: BUN (Urea Nitrogen) 22 mg/dL (9.8-20.1); Calc. Creatinine Clearance 229 mL/min (70-130); Calcium 9.1 mg/dL (7.8-10.44); Glucose 194 mg/dL (70-105)
[2021-04-04 05:38] LABS: Anion Gap 15 mmol/L (10-20); Carbon Dioxide 33 mmol/L (22-29); Chloride 96 mmol/L (98-107); Potassium 3.7 mmol/L (3.5-5.1); Sodium 140 mmol/L (136-145)
[2021-04-04] MEDS: Propofol 1,000 MG/100 ML VIAL IV PRN ×3 (06:07→23:56)
[2021-04-04] MEDS: Budesonide 0.5 MG/2 ML NEB NEB SCH ×2 (06:58→19:34)
[2021-04-04] MEDS: Vecuronium 10 MG VIAL IVP PRN ×5 (07:10→19:17)
[2021-04-04 07:16] LABS: Actual Bicarbonate (HCO3a) 40.8 mEq/L (22-28); Base Excess (BEa) 13.5 mEq/L (-2.0 to +3.0); Calcium, Ionized (arterial) 1.19 mmol/L (1.12-1.30); Carboxyhemoglobin (COHb) 0.2 gm% (0.0-3.0); Hemoglobin (Hb) 8.8 g/dL (12.0-16.0); O2 Tension (PaO2), arterial 73.8 mmHg (80.0-100.0); pH, Arterial 7.37 (7.35-7.45)
[2021-04-04 07:18] LABS: ALV-art Gradient 193.325 mmHg (0-20); CO2 Tension 71.5 mmHg (35.0-45.0); Puncture Site RRA
[2021-04-04] MEDS: Lorazepam 2 MG/ML VIAL SLOW IVP PRN ×2 (07:31→09:50)
[2021-04-04] MEDS ORDERED: VANCOMYCIN IVPB PRN (07:34)
[2021-04-04] MEDS: Cefepime 1 GM in Sodium Chloride 0.9% 100 ML IVPB SCH ×2 (09:47→20:06)
[2021-04-04] MEDS: Ascorbic Acid 500 mg Chewable Tablet PO SCH (09:48)
[2021-04-04] MEDS: methylPREDNISolone Sod Succ 40 MG VIAL IVP SCH ×2 (09:49→20:06)
[2021-04-04] MEDS: Pantoprazole 40 MG VIAL IVP SCH (09:50)
[2021-04-04] MEDS: Senokot S 8.6-50 MG TAB PO SCH ×2 (09:50→20:06)
[2021-04-04] MEDS: Polyethylene Glycol 3350 17 GM Packet PER TUBE SCH (09:51)
[2021-04-04] MEDS: Dexmedetomidine 1,000 MCG in Sodium Chloride 0.9% 250 ML 240 ML IVPB SCH (13:11)
[2021-04-04] MEDS ORDERED: Fentanyl CADD 100 ML ONE (15:06)
[2021-04-04] MEDS: Fentanyl CADD 100 ML IV SCH (15:21)
[2021-04-04] MEDS: Montelukast Sodium 10 mg Tablet PER TUBE SCH (20:06)
[2021-04-04] MEDS: Cholecalciferol 1,000 UNITS (25 MCG) TAB PO SCH (20:07)
[2021-04-05] MEDS: Dexmedetomidine 1,000 MCG in Sodium Chloride 0.9% 250 ML 240 ML IVPB SCH ×2 (00:30→13:45)
[2021-04-05] MEDS: Vecuronium 10 MG VIAL IVP PRN ×2 (03:40→14:59)
[2021-04-05] MEDS ORDERED: Fentanyl CADD 100 ML ONE ×2 (04:22→13:49)
[2021-04-05] MEDS: Fentanyl CADD 100 ML IV SCH ×2 (04:25→14:18)
[2021-04-05] MEDS: Propofol 1,000 MG/100 ML VIAL IV PRN ×2 (05:35→17:30)
[2021-04-05] MEDS: HumaLOG 300 UNITS/3 ML VIAL SC PRN ×2 (05:35→12:08)
[2021-04-05 06:03] LABS: Band 45 % (5-11); Hemoglobin 8.1 g/dL (12.0-16.0); Hypochromia SLIGHT = 6-15 cells (100X) (0-5/hpf); Lymphocytes 12 % (21-51); MDiff Complete? YES; Macrocytosis SLIGHT = 6-15 cells (100X) (0-5/hpf); Mean Corpuscular HGB CONC 31.3 g/dL (32.0-36.0); Mean Corpuscular Hemoglobin 31.3 pg (27.0-31.0); Mean Platelet Volume 9.8 fL (7.4-10.4); Metamyelocyte 20 % (0-0); Monocytes 2 % (0-10); Neutrophil 20 % (42-75); Platelet Count 70 thou/uL (130-400); Platelet Morphology Comment Appears Decreased; RBC Distribution Width 12.5 % (11.5-14.5); Reactive Lymphocytes 1 % (0-10); Red Blood Cell (RBC) Count 2.59 mill/uL (4.20-5.40); White Blood Cell (WBC) Count 2.5 thou/uL (4.8-10.8)
[2021-04-05 06:05] LABS: BUN (Urea Nitrogen) 32 mg/dL (9.8-20.1); Calc. Creatinine Clearance 200 mL/min (70-130); Glucose 187 mg/dL (70-105)
[2021-04-05 06:15] LABS: Anion Gap 15 mmol/L (10-20); Carbon Dioxide 33 mmol/L (22-29); Chloride 98 mmol/L (98-107); Potassium 3.8 mmol/L (3.5-5.1); Sodium 142 mmol/L (136-145)
[2021-04-05] MEDS: Budesonide 0.5 MG/2 ML NEB NEB SCH ×2 (06:45→20:34)
[2021-04-05 07:11] LABS: Actual Bicarbonate (HCO3a) 37.1 mEq/L (22-28); Base Excess (BEa) 11.2 mEq/L (-2.0 to +3.0); CO2 Tension 59.1 mmHg (35.0-45.0); Calcium, Ionized (arterial) 1.19 mmol/L (1.12-1.30); Carboxyhemoglobin (COHb) 0.6 gm% (0.0-3.0); Hemoglobin (Hb) 8.3 g/dL (12.0-16.0); Potassium - ABG Lab 3.63 mmol/L (3.70-5.30); pH, Arterial 7.42 (7.35-7.45)
[2021-04-05 07:12] LABS: ALV-art Gradient 323.225 mmHg (0-20); Puncture Site RRA
[2021-04-05] MEDS ORDERED: Lidocaine 1% w/Epinephrine 1:100K 20 ML VIAL IJ SCH (09:00)
[2021-04-05] MEDS ORDERED: Lidocaine 1% w/Epinephrine 1:100K 20 ML VIAL ONE ×2 (09:10→09:12)
[2021-04-05] MEDS ORDERED: Vecuronium 10 MG VIAL ONE (09:11)
[2021-04-05] MEDS ORDERED: Midazolam HCl 2 mg/2 ml Vial SLOW IVP PRN (09:20)
[2021-04-05] MEDS ORDERED: Midazolam HCl 5 mg/5 ml Vial SLOW IVP PRN (09:23)
[2021-04-05] MEDS ORDERED: Fentanyl 100 MCG/2 ML VIAL SLOW IVP PRN ×2 (09:24→09:25)
[2021-04-05] MEDS ORDERED: Vecuronium 10 MG VIAL IV SCH (09:30)
[2021-04-05] MEDS ORDERED: Lidocaine 1% w/Epinephrine 1:100K 20 ML VIAL FS SCH (09:30)
[2021-04-05] MEDS ORDERED: CEFAZOLIN 2 GM in Premix Bag 1 BAG IVPB SCH (09:45)
[2021-04-05] MEDS: Ascorbic Acid 500 mg Chewable Tablet PO SCH (11:09)
[2021-04-05] MEDS: Cefepime 1 GM in Sodium Chloride 0.9% 100 ML IVPB SCH ×2 (11:34→21:26)
[2021-04-05] MEDS: Polyethylene Glycol 3350 17 GM Packet PER TUBE SCH (11:36)
[2021-04-05] MEDS: Pantoprazole 40 MG VIAL IVP SCH (11:36)
[2021-04-05] MEDS: methylPREDNISolone Sod Succ 40 MG VIAL IVP SCH ×2 (11:36→21:27)
[2021-04-05] MEDS: Senokot S 8.6-50 MG TAB PO SCH ×2 (11:36→21:26)
[2021-04-05 20:33] LABS: Vancomycin, Trough 27.3 ug/mL
[2021-04-05] MEDS: Cholecalciferol 1,000 UNITS (25 MCG) TAB PO SCH (21:26)
[2021-04-05] MEDS: Montelukast Sodium 10 mg Tablet PER TUBE SCH (21:26)
[2021-04-06] MEDS ORDERED: Fentanyl CADD 100 ML ONE ×2 (00:17→10:51)
[2021-04-06] MEDS: Fentanyl CADD 100 ML IV SCH ×2 (00:23→10:54)
[2021-04-06] MEDS: Propofol 1,000 MG/100 ML VIAL IV PRN ×4 (00:29→20:39)
[2021-04-06] MEDS: Dexmedetomidine 1,000 MCG in Sodium Chloride 0.9% 250 ML 240 ML IVPB SCH ×2 (01:46→13:18)
[2021-04-06] MEDS: Vecuronium 10 MG VIAL IVP PRN (02:45)
[2021-04-06 04:38] LABS: Anion Gap 10 mmol/L (10-20); BUN (Urea Nitrogen) 34 mg/dL (9.8-20.1); Calc. Creatinine Clearance 193 mL/min (70-130); Calcium 8.8 mg/dL (7.8-10.44); Carbon Dioxide 36 mmol/L (22-29); Chloride 98 mmol/L (98-107); Glucose 139 mg/dL (70-105); Potassium 3.8 mmol/L (3.5-5.1); Sodium 140 mmol/L (136-145)
[2021-04-06 04:41] LABS: Band 43 % (5-11); Hemoglobin 8.1 g/dL (12.0-16.0); Lymphocytes 4 % (21-51); MDiff Complete? YES; Mean Corpuscular HGB CONC 30.1 g/dL (32.0-36.0); Mean Corpuscular Hemoglobin 29.8 pg (27.0-31.0); Mean Corpuscular Volume 99.2 fL (78.0-98.0); Mean Platelet Volume 10.9 fL (7.4-10.4); Monocytes 1 % (0-10); Neutrophil 52 % (42-75); Platelet Count 86 thou/uL (130-400); Platelet Morphology Comment Appears Decreased; RBC Distribution Width 12.7 % (11.5-14.5); Red Blood Cell (RBC) Count 2.72 mill/uL (4.20-5.40); White Blood Cell (WBC) Count 3.7 thou/uL (4.8-10.8)
[2021-04-06 06:53] LABS: Actual Bicarbonate (HCO3a) 39.7 mEq/L (22-28); Base Excess (BEa) 13.2 mEq/L (-2.0 to +3.0); Calcium, Ionized (arterial) 1.16 mmol/L (1.12-1.30); Carboxyhemoglobin (COHb) 0.7 gm% (0.0-3.0); Hemoglobin (Hb) 8.8 g/dL (12.0-16.0); O2 Tension (PaO2), arterial 61.4 mmHg (80.0-100.0); Potassium - ABG Lab 3.97 mmol/L (3.70-5.30); Puncture Site RRA; pH, Arterial 7.41 (7.35-7.45)
[2021-04-06] MEDS: Budesonide 0.5 MG/2 ML NEB NEB SCH ×2 (07:44→18:20)
[2021-04-06] MEDS: Ascorbic Acid 500 mg Chewable Tablet PO SCH (08:56)
[2021-04-06] MEDS: Vancomycin HCl 1.75 GM in Sodium Chloride 0.9% 500 ML IVPB SCH ×2 (08:57→21:57)
[2021-04-06] MEDS: Pantoprazole 40 MG GRANULES PACKET PER TUBE SCH (08:57)
[2021-04-06] MEDS: Cefepime 2 GM in Sodium Chloride 0.9% 100 ML IVPB SCH ×2 (08:57→16:47)
[2021-04-06] MEDS: Senokot S 8.6-50 MG TAB PO SCH ×2 (08:57→21:57)
[2021-04-06] MEDS: Polyethylene Glycol 3350 17 GM Packet PER TUBE SCH (08:57)
[2021-04-06] MEDS: methylPREDNISolone Sod Succ 40 MG VIAL IVP SCH ×2 (09:57→21:59)
[2021-04-06] MEDS: fentaNYL 100 mcg/hour Patch TD SCH (10:37)
[2021-04-06] MEDS: hydrALAZINE 20 MG/ML VIAL SLOW IVP PRN (15:03)
[2021-04-06] MEDS: Acetaminophen 325 MG TAB PO PRN (15:07)
[2021-04-06] MEDS: HumaLOG 300 UNITS/3 ML VIAL SC PRN ×2 (15:28→22:03)
[2021-04-06] MEDS: Cholecalciferol 1,000 UNITS (25 MCG) TAB PO SCH (21:57)
[2021-04-06] MEDS: Montelukast Sodium 10 mg Tablet PER TUBE SCH (21:57)
[2021-04-07] MEDS: Cefepime 2 GM in Sodium Chloride 0.9% 100 ML IVPB SCH ×3 (01:59→16:31)
[2021-04-07] MEDS: hydrALAZINE 20 MG/ML VIAL SLOW IVP PRN (02:37)
[2021-04-07] MEDS: Propofol 1,000 MG/100 ML VIAL IV PRN ×3 (03:14→15:17)
[2021-04-07] MEDS: Lorazepam 2 MG/ML VIAL SLOW IVP PRN (03:46)
[2021-04-07 04:47] LABS: Mean Corpuscular HGB CONC 32.4 g/dL (32.0-36.0); Mean Corpuscular Hemoglobin 32.2 pg (27.0-31.0); Mean Corpuscular Volume 99.6 fL (78.0-98.0); Mean Platelet Volume 10.8 fL (7.4-10.4); Platelet Count 102 thou/uL (130-400); Red Blood Cell (RBC) Count 2.47 mill/uL (4.20-5.40); White Blood Cell (WBC) Count 5.6 thou/uL (4.8-10.8)
[2021-04-07 05:02] LABS: ALT (SGPT) 27 U/L (8-55); AST (SGOT) 20 U/L (5-34); Albumin 2.1 g/dL (3.5-5.0); Alkaline Phosphatase 69 U/L (40-110); Anion Gap 10 mmol/L (10-20); BUN (Urea Nitrogen) 38 mg/dL (9.8-20.1); Bilirubin, Total 0.8 mg/dL (0.2-1.2); Calc. Creatinine Clearance 181 mL/min (70-130); Calcium 8.4 mg/dL (7.8-10.44); Carbon Dioxide 36 mmol/L (22-29); Chloride 100 mmol/L (98-107); Globulin 3.3 g/dL (2.4-3.5); Glucose 165 mg/dL (70-105); Potassium 3.9 mmol/L (3.5-5.1); Protein, Total 5.4 g/dL (6.0-8.3); Sodium 142 mmol/L (136-145)
[2021-04-07 05:31] LABS: Band 55 % (5-11); Lymphocytes 7 % (21-51); MDiff Complete? YES; Metamyelocyte 1 % (0-0); Monocytes 1 % (0-10); Myelocyte 3 % (0-0); Neutrophil 33 % (42-75); Toxic Granulation SLIGHT
[2021-04-07] MEDS: HumaLOG 300 UNITS/3 ML VIAL SC PRN ×4 (06:33→22:27)
[2021-04-07] MEDS: Budesonide 0.5 MG/2 ML NEB NEB SCH ×2 (06:34→18:13)
[2021-04-07] MEDS ORDERED: Fentanyl CADD 100 ML ONE (06:55)
[2021-04-07] MEDS: Fentanyl CADD 100 ML IV SCH (06:56)
[2021-04-07 07:03] LABS: Actual Bicarbonate (HCO3a) 38.6 mEq/L (22-28); Base Excess (BEa) 11.5 mEq/L (-2.0 to +3.0); Calcium, Ionized (arterial) 1.12 mmol/L (1.12-1.30); Carboxyhemoglobin (COHb) 0.6 gm% (0.0-3.0); Hemoglobin (Hb) 8.4 g/dL (12.0-16.0); Potassium - ABG Lab 3.89 mmol/L (3.70-5.30); pH, Arterial 7.36 (7.35-7.45)
[2021-04-07 07:14] LABS: CO2 Tension 70.1 mmHg (35.0-45.0)
[2021-04-07 07:15] LABS: ALV-art Gradient 436.175 mmHg (0-20); O2 Tension (PaO2), arterial 189.2 mmHg (80.0-100.0); Puncture Site RRA
[2021-04-07] MEDS: Dexmedetomidine 1,000 MCG in Sodium Chloride 0.9% 250 ML 240 ML IVPB SCH ×2 (08:00→18:45)
[2021-04-07] MEDS ORDERED: Lidocaine 2% PF 100 mg/5 ml Syringe ONE (08:39)
[2021-04-07] MEDS ORDERED: Lidocaine 1% (PF) 30 ML VIAL FS SCH (08:45)
[2021-04-07] MEDS: Vancomycin HCl 1.75 GM in Sodium Chloride 0.9% 500 ML IVPB SCH ×2 (09:25→21:40)
[2021-04-07] MEDS: Pantoprazole 40 MG GRANULES PACKET PER TUBE SCH (09:26)
[2021-04-07] MEDS: Ascorbic Acid 500 mg Chewable Tablet PO SCH (09:26)
[2021-04-07] MEDS: Senokot S 8.6-50 MG TAB PO SCH ×2 (09:26→20:21)
[2021-04-07] MEDS: Polyethylene Glycol 3350 17 GM Packet PER TUBE SCH (09:26)
[2021-04-07] MEDS: methylPREDNISolone Sod Succ 40 MG VIAL IVP SCH (09:27)
[2021-04-07] MEDS: Furosemide 40 MG/4 ML VIAL SLOW IVP SCH (09:27)
[2021-04-07] MEDS: Montelukast Sodium 10 mg Tablet PER TUBE SCH (20:21)
[2021-04-07] MEDS: Cholecalciferol 1,000 UNITS (25 MCG) TAB PO SCH (20:21)
[2021-04-07 21:17] LABS: Vancomycin, Trough 37.4 ug/mL
[2021-04-07] MEDS ORDERED: Vancomycin HCl 1 GM in Premix Bag 1 BAG IVPB SCH (21:30)
[2021-04-07] MEDS: Propofol 500 MG/50 ML VIAL IV PRN (23:03)
[2021-04-08] MEDS: Cefepime 2 GM in Sodium Chloride 0.9% 100 ML IVPB SCH ×3 (00:34→16:41)
[2021-04-08] MEDS ORDERED: Fentanyl CADD 100 ML ONE (02:40)
[2021-04-08] MEDS: Fentanyl CADD 100 ML IV SCH (02:44)
[2021-04-08] MEDS: Propofol 500 MG/50 ML VIAL IV PRN ×2 (02:54→08:07)
[2021-04-08] MEDS: Dexmedetomidine 1,000 MCG in Sodium Chloride 0.9% 250 ML 240 ML IVPB SCH ×3 (02:59→23:29)
[2021-04-08 03:36] LABS: Hemoglobin 8.2 g/dL (12.0-16.0); Mean Corpuscular HGB CONC 32.5 g/dL (32.0-36.0); Mean Corpuscular Hemoglobin 31.7 pg (27.0-31.0); Mean Corpuscular Volume 97.7 fL (78.0-98.0); Mean Platelet Volume 10.7 fL (7.4-10.4); Platelet Count 111 thou/uL (130-400); RBC Distribution Width 13.1 % (11.5-14.5); Red Blood Cell (RBC) Count 2.58 mill/uL (4.20-5.40); White Blood Cell (WBC) Count 8.8 thou/uL (4.8-10.8)
[2021-04-08 03:47] LABS: ALT (SGPT) 27 U/L (8-55); AST (SGOT) 27 U/L (5-34); Alkaline Phosphatase 77 U/L (40-110); BUN (Urea Nitrogen) 45 mg/dL (9.8-20.1); Bilirubin, Total 0.9 mg/dL (0.2-1.2); Calc. Creatinine Clearance 181 mL/min (70-130); Globulin 2.9 g/dL (2.4-3.5); Glucose 160 mg/dL (70-105); Protein, Total 4.9 g/dL (6.0-8.3)
[2021-04-08 03:55] LABS: Chloride 100 mmol/L (98-107); Potassium 3.6 mmol/L (3.5-5.1); Sodium 144 mmol/L (136-145)
[2021-04-08 03:58] LABS: Anion Gap 13 mmol/L (10-20); Carbon Dioxide 35 mmol/L (22-29)
[2021-04-08 04:08] LABS: Band 30 % (5-11); Lymphocytes 6 % (21-51); MDiff Complete? YES; Metamyelocyte 6 % (0-0); Monocytes 1 % (0-10); Myelocyte 3 % (0-0); Neutrophil 54 % (42-75); Platelet Morphology Comment Appears Decreased; RBC Morphology Normal; Toxic Granulation SLIGHT
[2021-04-08] MEDS: HumaLOG 300 UNITS/3 ML VIAL SC PRN ×4 (04:20→21:31)
[2021-04-08] MEDS: Lorazepam 2 MG/ML VIAL SLOW IVP PRN ×2 (07:30→18:41)
[2021-04-08 07:53] LABS: Actual Bicarbonate (HCO3a) 35.8 mEq/L (22-28); Base Excess (BEa) 8.3 mEq/L (-2.0 to +3.0); Calcium, Ionized (arterial) 1.14 mmol/L (1.12-1.30); Carboxyhemoglobin (COHb) 0.7 gm% (0.0-3.0); Hemoglobin (Hb) 11.9 g/dL (12.0-16.0); O2 Tension (PaO2), arterial 133.5 mmHg (80.0-100.0); pH, Arterial 7.36 (7.35-7.45)
[2021-04-08] MEDS: Furosemide 40 MG/4 ML VIAL SLOW IVP SCH (08:26)
[2021-04-08] MEDS: Ascorbic Acid 500 mg Chewable Tablet PO SCH (08:26)
[2021-04-08] MEDS: Polyethylene Glycol 3350 17 GM Packet PER TUBE SCH (08:26)
[2021-04-08] MEDS: Budesonide 0.5 MG/2 ML NEB NEB SCH ×2 (08:26→18:21)
[2021-04-08] MEDS: Enoxaparin Sodium 40 MG/0.4 ML SYRINGE SC SCH (08:26)
[2021-04-08] MEDS: Pantoprazole 40 MG GRANULES PACKET PER TUBE SCH (08:26)
[2021-04-08] MEDS: methylPREDNISolone Sod Succ 40 MG VIAL IVP SCH (08:27)
[2021-04-08 08:30] LABS: CO2 Tension 65.2 mmHg (35.0-45.0)
[2021-04-08] MEDS: Senokot S 8.6-50 MG TAB PO SCH ×2 (08:30→19:59)
[2021-04-08 08:31] LABS: Puncture Site RRA
[2021-04-08] MEDS: fentaNYL 50 mcg/hour Patch TD SCH (16:41)
[2021-04-08] MEDS: Cholecalciferol 1,000 UNITS (25 MCG) TAB PO SCH (19:59)
[2021-04-08] MEDS: Propofol 1,000 MG/100 ML VIAL IV PRN (19:59)
[2021-04-08] MEDS: Montelukast Sodium 10 mg Tablet PER TUBE SCH (19:59)
[2021-04-08] MEDS: Vancomycin HCl 1.75 GM in Sodium Chloride 0.9% 500 ML IVPB SCH (21:45)
[2021-04-09] MEDS: Cefepime 2 GM in Sodium Chloride 0.9% 100 ML IVPB SCH ×3 (00:10→17:18)
[2021-04-09] MEDS: Lorazepam 2 MG/ML VIAL SLOW IVP PRN ×4 (01:27→12:48)
[2021-04-09 05:12] LABS: Hemoglobin 7.4 g/dL (12.0-16.0); Mean Corpuscular HGB CONC 31.8 g/dL (32.0-36.0); Mean Corpuscular Hemoglobin 31.2 pg (27.0-31.0); Mean Platelet Volume 11.2 fL (7.4-10.4); Platelet Count 113 thou/uL (130-400); RBC Distribution Width 12.9 % (11.5-14.5); Red Blood Cell (RBC) Count 2.37 mill/uL (4.20-5.40); White Blood Cell (WBC) Count 8.9 thou/uL (4.8-10.8)
[2021-04-09] MEDS: Dexmedetomidine 1,000 MCG in Sodium Chloride 0.9% 250 ML 240 ML IVPB SCH ×2 (05:21→18:50)
[2021-04-09 05:29] LABS: Phosphorus 2.8 mg/dL (2.3-4.7)
[2021-04-09 05:33] LABS: ALT (SGPT) 36 U/L (8-55); AST (SGOT) 41 U/L (5-34); Albumin 1.9 g/dL (3.5-5.0); Alkaline Phosphatase 77 U/L (40-110); Anion Gap 11 mmol/L (10-20); BUN (Urea Nitrogen) 44 mg/dL (9.8-20.1); Bilirubin, Total 0.7 mg/dL (0.2-1.2); Calc. Creatinine Clearance 175 mL/min (70-130); Calcium 8.1 mg/dL (7.8-10.44); Carbon Dioxide 37 mmol/L (22-29); Chloride 99 mmol/L (98-107); Globulin 3.4 g/dL (2.4-3.5); Glucose 147 mg/dL (70-105); Magnesium 1.8 mg/dL (1.6-2.6); Protein, Total 5.3 g/dL (6.0-8.3); Sodium 144 mmol/L (136-145)
[2021-04-09] MEDS ORDERED: Magnesium 2 GM/50 ML 2 GM in Premix Bag 1 BAG IVPB SCH (05:45)
[2021-04-09] MEDS ORDERED: Potassium Bicarbonate/Cit Ac 20 MEQ TAB PER TUBE SCH (06:00)
[2021-04-09 06:09] LABS: Band 43 % (5-11); Lymphocytes 5 % (21-51); MDiff Complete? YES; Monocytes 1 % (0-10); Myelocyte 1 % (0-0); Neutrophil 50 % (42-75); Platelet Morphology Comment Appears Decreased
[2021-04-09 08:06] LABS: Actual Bicarbonate (HCO3a) 39.6 mEq/L (22-28); Base Excess (BEa) 13.3 mEq/L (-2.0 to +3.0); Carboxyhemoglobin (COHb) 0.6 gm% (0.0-3.0); Hemoglobin (Hb) 9.7 g/dL (12.0-16.0); O2 Tension (PaO2), arterial 63.2 mmHg (80.0-100.0); Potassium - ABG Lab 3.59 mmol/L (3.70-5.30); pH, Arterial 7.43 (7.35-7.45)
[2021-04-09] MEDS ORDERED: Electrolyte Replacement Protocol 1 EACH FS SCH (08:45)
[2021-04-09] MEDS: Budesonide 0.5 MG/2 ML NEB NEB SCH ×2 (08:58→18:38)
[2021-04-09 09:00] LABS: ALV-art Gradient 145.375 mmHg (0-20); CO2 Tension 61.3 mmHg (35.0-45.0); Puncture Site RRA
[2021-04-09] MEDS ORDERED: Electrolyte Replacement Protocol FS PRN (09:00)
[2021-04-09] MEDS ORDERED: Fluconazole In NaCl,Iso-Osm 100 MG in Premix Bag 1 BAG IVPB SCH (09:00)
[2021-04-09] MEDS: Enoxaparin Sodium 40 MG/0.4 ML SYRINGE SC SCH (09:14)
[2021-04-09] MEDS: Ascorbic Acid 500 mg Chewable Tablet PO SCH (09:14)
[2021-04-09] MEDS: Pantoprazole 40 MG GRANULES PACKET PER TUBE SCH (09:14)
[2021-04-09] MEDS: Senokot S 8.6-50 MG TAB PO SCH ×2 (09:14→21:48)
[2021-04-09] MEDS: methylPREDNISolone Sod Succ 40 MG VIAL IVP SCH (09:15)
[2021-04-09] MEDS: Polyethylene Glycol 3350 17 GM Packet PER TUBE SCH (09:39)
[2021-04-09] MEDS: Fluconazole In NaCl,Iso-Osm 100 MG in Admixture Fee 2 EACH IVPB SCH (10:09)
[2021-04-09] MEDS: Propofol 1,000 MG/100 ML VIAL IV PRN (12:40)
[2021-04-09] MEDS: HumaLOG 300 UNITS/3 ML VIAL SC PRN (16:26)
[2021-04-09] MEDS: Montelukast Sodium 10 mg Tablet PER TUBE SCH (21:48)
[2021-04-09] MEDS: Vancomycin HCl 1.75 GM in Sodium Chloride 0.9% 500 ML IVPB SCH (21:55)
[2021-04-09] MEDS: Cholecalciferol 1,000 UNITS (25 MCG) TAB PO SCH (21:56)
[2021-04-10] MEDS: Dexmedetomidine 1,000 MCG in Sodium Chloride 0.9% 250 ML 240 ML IVPB SCH ×2 (01:54→12:11)
[2021-04-10] MEDS: Cefepime 2 GM in Sodium Chloride 0.9% 100 ML IVPB SCH ×3 (01:54→18:34)
[2021-04-10 05:08] LABS: Hemoglobin 8.5 g/dL (12.0-16.0); Mean Corpuscular HGB CONC 31.4 g/dL (32.0-36.0); Mean Corpuscular Hemoglobin 31.2 pg (27.0-31.0); Mean Corpuscular Volume 99.3 fL (78.0-98.0); Mean Platelet Volume 11.2 fL (7.4-10.4); Platelet Count 120 thou/uL (130-400); RBC Distribution Width 13.1 % (11.5-14.5); Red Blood Cell (RBC) Count 2.71 mill/uL (4.20-5.40); White Blood Cell (WBC) Count 15.6 thou/uL (4.8-10.8)
[2021-04-10 05:38] LABS: ALT (SGPT) 41 U/L (8-55); AST (SGOT) 43 U/L (5-34); Alkaline Phosphatase 90 U/L (40-110); BUN (Urea Nitrogen) 39 mg/dL (9.8-20.1); Bilirubin, Total 0.7 mg/dL (0.2-1.2); Calc. Creatinine Clearance 195 mL/min (70-130); Calcium 7.8 mg/dL (7.8-10.44); Globulin 2.9 g/dL (2.4-3.5); Glucose 152 mg/dL (70-105); Magnesium 2.1 mg/dL (1.6-2.6); Protein, Total 4.9 g/dL (6.0-8.3)
[2021-04-10 05:48] LABS: Anion Gap 14 mmol/L (10-20); Carbon Dioxide 34 mmol/L (22-29); Chloride 102 mmol/L (98-107); Potassium 3.6 mmol/L (3.5-5.1); Sodium 146 mmol/L (136-145)
[2021-04-10 06:08] LABS: Band 61 % (5-11); MDiff Complete? YES; Metamyelocyte 1 % (0-0); Monocytes 3 % (0-10); Neutrophil 35 % (42-75); Toxic Granulation SLIGHT
[2021-04-10] MEDS: Budesonide 0.5 MG/2 ML NEB NEB SCH ×2 (06:58→18:25)
[2021-04-10 07:01] LABS: Actual Bicarbonate (HCO3a) 40.4 mEq/L (22-28); Base Excess (BEa) 11.6 mEq/L (-2.0 to +3.0); Calcium, Ionized (arterial) 1.18 mmol/L (1.12-1.30); Carboxyhemoglobin (COHb) 0.5 gm% (0.0-3.0); Hemoglobin (Hb) 9.7 g/dL (12.0-16.0); Potassium - ABG Lab 3.35 mmol/L (3.70-5.30)
[2021-04-10] MEDS ORDERED: Vecuronium 10 MG VIAL IVP PRN (07:29)
[2021-04-10] MEDS ORDERED: Vecuronium 10 MG VIAL ONE (07:30)
[2021-04-10] MEDS: Lorazepam 2 MG/ML VIAL SLOW IVP PRN ×2 (07:56→15:30)
[2021-04-10 07:59] LABS: CO2 Tension 84.1 mmHg (35.0-45.0); O2 Tension (PaO2), arterial 55.6 mmHg (80.0-100.0)
[2021-04-10 08:00] LABS: ALV-art Gradient 338.375 mmHg (0-20); Puncture Site RRA
[2021-04-10] MEDS: Pantoprazole 40 MG GRANULES PACKET PER TUBE SCH (08:05)
[2021-04-10] MEDS: Senokot S 8.6-50 MG TAB PO SCH ×2 (08:05→20:27)
[2021-04-10] MEDS: Ascorbic Acid 500 mg Chewable Tablet PO SCH (08:05)
[2021-04-10] MEDS: methylPREDNISolone Sod Succ 40 MG VIAL IVP SCH (08:06)
[2021-04-10] MEDS: Polyethylene Glycol 3350 17 GM Packet PER TUBE SCH (09:26)
[2021-04-10] MEDS: Enoxaparin Sodium 40 MG/0.4 ML SYRINGE SC SCH (09:26)
[2021-04-10] MEDS: Fluconazole In NaCl,Iso-Osm 100 MG in Admixture Fee 2 EACH IVPB SCH (10:34)
[2021-04-10] MEDS: HumaLOG 300 UNITS/3 ML VIAL SC PRN ×2 (16:50→22:58)
[2021-04-10] MEDS: Cholecalciferol 1,000 UNITS (25 MCG) TAB PO SCH (20:27)
[2021-04-10] MEDS: Montelukast Sodium 10 mg Tablet PER TUBE SCH (20:27)
[2021-04-10] MEDS: Morphine 4 MG/ML VIAL SLOW IVP PRN (20:35)
[2021-04-10] MEDS: Vancomycin HCl 1.75 GM in Sodium Chloride 0.9% 500 ML IVPB SCH (21:57)
[2021-04-11] MEDS: Cefepime 2 GM in Sodium Chloride 0.9% 100 ML IVPB SCH ×2 (01:07→10:46)
[2021-04-11 04:51] LABS: Hemoglobin 7.8 g/dL (12.0-16.0); Mean Corpuscular HGB CONC 31.7 g/dL (32.0-36.0); Mean Corpuscular Hemoglobin 31.6 pg (27.0-31.0); Mean Corpuscular Volume 99.5 fL (78.0-98.0); Mean Platelet Volume 11.8 fL (7.4-10.4); Platelet Count 158 thou/uL (130-400); RBC Distribution Width 13.1 % (11.5-14.5); Red Blood Cell (RBC) Count 2.48 mill/uL (4.20-5.40); White Blood Cell (WBC) Count 18.5 thou/uL (4.8-10.8)
[2021-04-11 05:09] LABS: Anion Gap 12 mmol/L (10-20); BUN (Urea Nitrogen) 49 mg/dL (9.8-20.1); Calc. Creatinine Clearance 163 mL/min (70-130); Calcium 8.1 mg/dL (7.8-10.44); Carbon Dioxide 37 mmol/L (22-29); Chloride 101 mmol/L (98-107); Glucose 147 mg/dL (70-105); Sodium 147 mmol/L (136-145)
[2021-04-11] MEDS ORDERED: Potassium Bicarbonate/Cit Ac 20 MEQ TAB PER TUBE SCH (05:15)
[2021-04-11] MEDS: Morphine 2 MG/ML VIAL SLOW IVP PRN ×2 (05:17→23:05)
[2021-04-11] MEDS: Lorazepam 2 MG/ML VIAL SLOW IVP PRN (05:32)
[2021-04-11 05:57] LABS: Band 47 % (5-11); Lymphocytes 5 % (21-51); MDiff Complete? YES; Monocytes 2 % (0-10); Neutrophil 46 % (42-75); Platelet Morphology Comment Appears Adequate; RBC Morphology Normal
[2021-04-11] MEDS: Budesonide 0.5 MG/2 ML NEB NEB SCH ×2 (08:20→18:15)
[2021-04-11] MEDS: Sodium Chloride 0.45% 1,000 ML IV SCH ×2 (09:05→16:36)
[2021-04-11] MEDS: Senokot S 8.6-50 MG TAB PO SCH ×2 (09:06→20:15)
[2021-04-11] MEDS: Ascorbic Acid 500 mg Chewable Tablet PO SCH (09:06)
[2021-04-11] MEDS: Fluconazole In NaCl,Iso-Osm 100 MG in Admixture Fee 2 EACH IVPB SCH (09:06)
[2021-04-11] MEDS: Polyethylene Glycol 3350 17 GM Packet PER TUBE SCH (09:06)
[2021-04-11] MEDS: Enoxaparin Sodium 40 MG/0.4 ML SYRINGE SC SCH (09:06)
[2021-04-11] MEDS: Pantoprazole 40 MG GRANULES PACKET PER TUBE SCH (09:07)
[2021-04-11] MEDS: methylPREDNISolone Sod Succ 40 MG VIAL IVP SCH (09:07)
[2021-04-11] MEDS: Cefepime 2 GM, Admixture Fee 1 EACH in Sodium Chloride 0.9% 100 ML IVPB SCH ×2 (10:45→16:36)
[2021-04-11] MEDS: HumaLOG 300 UNITS/3 ML VIAL SC PRN ×3 (10:56→22:36)
[2021-04-11] MEDS: fentaNYL 50 mcg/hour Patch TD SCH (16:37)
[2021-04-11] MEDS: Montelukast Sodium 10 mg Tablet PER TUBE SCH (20:16)
[2021-04-11] MEDS: Cholecalciferol 1,000 UNITS (25 MCG) TAB PO SCH (20:16)
[2021-04-11] MEDS: Vancomycin HCl 1.75 GM in Sodium Chloride 0.9% 500 ML IVPB SCH (21:26)
[2021-04-12] MEDS: Lorazepam 2 MG/ML VIAL SLOW IVP PRN ×3 (00:44→16:46)
[2021-04-12] MEDS: Cefepime 2 GM, Admixture Fee 1 EACH in Sodium Chloride 0.9% 100 ML IVPB SCH ×3 (01:04→16:42)
[2021-04-12 03:49] LABS: Hemoglobin 6.8 g/dL (12.0-16.0); Mean Corpuscular Hemoglobin 31.2 pg (27.0-31.0); Mean Corpuscular Volume 97.6 fL (78.0-98.0); Mean Platelet Volume 11.5 fL (7.4-10.4); Platelet Count 123 thou/uL (130-400); RBC Distribution Width 13.3 % (11.5-14.5); Red Blood Cell (RBC) Count 2.18 mill/uL (4.20-5.40)
[2021-04-12 03:59] LABS: Anion Gap 9 mmol/L (10-20); BUN (Urea Nitrogen) 54 mg/dL (9.8-20.1); Calc. Creatinine Clearance 158 mL/min (70-130); Calcium 7.8 mg/dL (7.8-10.44); Carbon Dioxide 37 mmol/L (22-29); Chloride 103 mmol/L (98-107); Glucose 161 mg/dL (70-105); Potassium 3.1 mmol/L (3.5-5.1); Sodium 146 mmol/L (136-145)
[2021-04-12] MEDS: HumaLOG 300 UNITS/3 ML VIAL SC PRN ×4 (04:59→22:55)
[2021-04-12 05:31] LABS: Band 33 % (5-11); Large Platelets SLIGHT; Lymphocytes 3 % (21-51); MDiff Complete? YES; Neutrophil 64 % (42-75); Platelet Morphology Comment Appears Adequate
[2021-04-12] MEDS: Potassium Bicarbonate/Cit Ac 20 MEQ TAB PER TUBE SCH ×2 (06:23→08:19)
[2021-04-12] MEDS: Pantoprazole 40 MG GRANULES PACKET PER TUBE SCH (08:15)
[2021-04-12] MEDS: Senokot S 8.6-50 MG TAB PO SCH ×2 (08:18→20:52)
[2021-04-12] MEDS: Ascorbic Acid 500 mg Chewable Tablet PO SCH (08:18)
[2021-04-12] MEDS: Polyethylene Glycol 3350 17 GM Packet PER TUBE SCH (08:19)
[2021-04-12] MEDS: methylPREDNISolone Sod Succ 40 MG VIAL IVP SCH (08:19)
[2021-04-12] MEDS: Enoxaparin Sodium 40 MG/0.4 ML SYRINGE SC SCH (08:19)
[2021-04-12] MEDS: Ziprasidone 20 MG CAP PER TUBE SCH ×2 (08:20→20:51)
[2021-04-12] MEDS: Lorazepam 1 MG TAB PER TUBE SCH ×3 (08:31→20:51)
[2021-04-12] MEDS: Budesonide 0.5 MG/2 ML NEB NEB SCH ×2 (09:28→18:09)
[2021-04-12] MEDS: hydrALAZINE 20 MG/ML VIAL SLOW IVP PRN (09:40)
[2021-04-12] MEDS: Fluconazole In NaCl,Iso-Osm 100 MG in Admixture Fee 2 EACH IVPB SCH (10:20)
[2021-04-12] MEDS: Montelukast Sodium 10 mg Tablet PER TUBE SCH (20:51)
[2021-04-12] MEDS: Cholecalciferol 1,000 UNITS (25 MCG) TAB PO SCH (20:51)
[2021-04-12] MEDS: Vancomycin HCl 1.75 GM in Sodium Chloride 0.9% 500 ML IVPB SCH (22:48)
[2021-04-13] MEDS: Lorazepam 2 MG/ML VIAL SLOW IVP PRN ×2 (00:05→14:08)
[2021-04-13] MEDS: Cefepime 2 GM, Admixture Fee 1 EACH in Sodium Chloride 0.9% 100 ML IVPB SCH (01:41)
[2021-04-13 05:17] LABS: Anion Gap 11 mmol/L (10-20); BUN (Urea Nitrogen) 58 mg/dL (9.8-20.1); Calc. Creatinine Clearance 152 mL/min (70-130); Calcium 8.1 mg/dL (7.8-10.44); Carbon Dioxide 35 mmol/L (22-29); Chloride 104 mmol/L (98-107); Glucose 169 mg/dL (70-105); Potassium 3.4 mmol/L (3.5-5.1); Sodium 147 mmol/L (136-145)
[2021-04-13] MEDS: HumaLOG 300 UNITS/3 ML VIAL SC PRN ×4 (05:40→21:28)
[2021-04-13 05:47] LABS: Band 45 % (5-11); Hemoglobin 10.8 g/dL (12.0-16.0); Lymphocytes 3 % (21-51); MDiff Complete? YES; Mean Corpuscular HGB CONC 32.3 g/dL (32.0-36.0); Mean Corpuscular Hemoglobin 30.8 pg (27.0-31.0); Mean Corpuscular Volume 95.4 fL (78.0-98.0); Mean Platelet Volume 11.7 fL (7.4-10.4); Monocytes 4 % (0-10); Neutrophil 48 % (42-75); Platelet Count 118 thou/uL (130-400); Platelet Morphology Comment Appears Decreased; RBC Distribution Width 13.9 % (11.5-14.5); RBC Morphology Normal; Red Blood Cell (RBC) Count 3.51 mill/uL (4.20-5.40); White Blood Cell (WBC) Count 20.5 thou/uL (4.8-10.8)
[2021-04-13] MEDS ORDERED: Potassium Bicarbonate/Cit Ac 20 MEQ TAB PER TUBE SCH ×2 (06:45→08:30)
[2021-04-13] MEDS ORDERED: MEROPENEM 1 GM/50 ML 1 GM in Premix Bag 1 BAG IVPB SCH (07:30)
[2021-04-13] MEDS: Budesonide 0.5 MG/2 ML NEB NEB SCH ×2 (07:59→17:55)
[2021-04-13] MEDS: Dextrose 5% in Water 1,000 ML IV SCH ×2 (08:16→21:21)
[2021-04-13] MEDS: Micafungin 100 MG in Sodium Chloride 0.9% 100 ML IVPB SCH (08:21)
[2021-04-13] MEDS: Enoxaparin Sodium 40 MG/0.4 ML SYRINGE SC SCH (08:39)
[2021-04-13] MEDS: predniSONE 20 MG TAB PER TUBE SCH (08:40)
[2021-04-13] MEDS: Polyethylene Glycol 3350 17 GM Packet PER TUBE SCH (08:40)
[2021-04-13] MEDS: Senokot S 8.6-50 MG TAB PO SCH ×2 (08:40→21:22)
[2021-04-13] MEDS: Lorazepam 1 MG TAB PER TUBE SCH ×3 (08:40→21:22)
[2021-04-13] MEDS: Pantoprazole 40 MG GRANULES PACKET PER TUBE SCH (08:40)
[2021-04-13] MEDS: Ziprasidone 20 MG CAP PER TUBE SCH ×2 (08:41→21:22)
[2021-04-13] MEDS: Ascorbic Acid 500 mg Chewable Tablet PO SCH (08:41)
[2021-04-13] MEDS: Metoprolol Tartrate 25 MG TAB PER TUBE SCH ×2 (08:41→21:22)
[2021-04-13] MEDS ORDERED: Cefepime 2 GM in Sodium Chloride 0.9% 100 ML IVPB SCH (09:00)
[2021-04-13] MEDS ORDERED: Meropenem 2 GM in Sodium Chloride 0.9% 100 ML IVPB SCH (14:00)
[2021-04-13] MEDS: MEROPENEM 1 GM/50 ML 1 GM in Premix Bag 1 BAG IVPB SCH (16:47)
[2021-04-13] MEDS: Labetalol HCl 100 MG/20 ML VIAL SLOW IVP PRN (16:48)
[2021-04-13] MEDS: Montelukast Sodium 10 mg Tablet PER TUBE SCH (21:22)
[2021-04-13] MEDS: Cholecalciferol 1,000 UNITS (25 MCG) TAB PO SCH (21:22)
[2021-04-13] MEDS: Vancomycin HCl 1.75 GM in Sodium Chloride 0.9% 500 ML IVPB SCH (22:25)
[2021-04-14] MEDS: MEROPENEM 1 GM/50 ML 1 GM in Premix Bag 1 BAG IVPB SCH ×3 (00:56→17:00)
[2021-04-14] MEDS: HumaLOG 300 UNITS/3 ML VIAL SC PRN ×2 (04:13→10:23)
[2021-04-14 04:51] LABS: Chloride 102 mmol/L (98-107); Sodium 143 mmol/L (136-145)
[2021-04-14 04:52] LABS: Calcium 7.9 mg/dL (7.8-10.44); Glucose 197 mg/dL (70-105)
[2021-04-14 04:54] LABS: Anion Gap 9 mmol/L (10-20); Carbon Dioxide 35 mmol/L (22-29)
[2021-04-14 04:56] LABS: BUN (Urea Nitrogen) 59 mg/dL (9.8-20.1); Calc. Creatinine Clearance 153 mL/min (70-130)
[2021-04-14 05:34] LABS: Band 33 % (5-11); Hemoglobin 10.5 g/dL (12.0-16.0); Hypochromia SLIGHT = 6-15 cells (100X) (0-5/hpf); Lymphocytes 4 % (21-51); MDiff Complete? YES; Mean Corpuscular HGB CONC 31.9 g/dL (32.0-36.0); Mean Corpuscular Hemoglobin 30.8 pg (27.0-31.0); Mean Corpuscular Volume 96.6 fL (78.0-98.0); Mean Platelet Volume 12.2 fL (7.4-10.4); Metamyelocyte 5 % (0-0); Monocytes 3 % (0-10); Neutrophil 55 % (42-75); Platelet Count 88 thou/uL (130-400); Platelet Morphology Comment Appears Decreased; RBC Distribution Width 13.8 % (11.5-14.5); Red Blood Cell (RBC) Count 3.39 mill/uL (4.20-5.40); Toxic Granulation SLIGHT; Vacuoles SLIGHT; White Blood Cell (WBC) Count 13.3 thou/uL (4.8-10.8)
[2021-04-14] MEDS ORDERED: Potassium Chloride 40 MEQ in Sodium Chloride 0.9% 250 ML 250 ML IVPB SCH (07:00)
[2021-04-14] MEDS ORDERED: Artificial Tear Sol 15 ML BOT EA EYE PRN (07:32)
[2021-04-14] MEDS: Budesonide 0.5 MG/2 ML NEB NEB SCH ×2 (08:05→18:33)
[2021-04-14] MEDS: Ascorbic Acid 500 mg Chewable Tablet PO SCH (08:38)
[2021-04-14] MEDS: Senokot S 8.6-50 MG TAB PO SCH ×2 (08:38→20:55)
[2021-04-14] MEDS: Pantoprazole 40 MG GRANULES PACKET PER TUBE SCH (08:38)
[2021-04-14] MEDS: predniSONE 20 MG TAB PER TUBE SCH (08:38)
[2021-04-14] MEDS: Lorazepam 1 MG TAB PER TUBE SCH ×3 (08:39→20:52)
[2021-04-14] MEDS: Ziprasidone 20 MG CAP PER TUBE SCH ×2 (08:39→20:55)
[2021-04-14] MEDS: Enoxaparin Sodium 40 MG/0.4 ML SYRINGE SC SCH (08:40)
[2021-04-14] MEDS: Labetalol HCl 100 MG/20 ML VIAL SLOW IVP PRN (08:42)
[2021-04-14] MEDS: Polyethylene Glycol 3350 17 GM Packet PER TUBE SCH (08:46)
[2021-04-14] MEDS: Metoprolol Tartrate 25 MG TAB PER TUBE SCH ×2 (08:47→20:54)
[2021-04-14] MEDS: Micafungin 100 MG in Sodium Chloride 0.9% 100 ML IVPB SCH (09:58)
[2021-04-14] MEDS ORDERED: Potassium Chloride 20 MEQ TAB PER TUBE SCH (15:00)
[2021-04-14] MEDS: fentaNYL 50 mcg/hour Patch TD SCH (16:00)
[2021-04-14] MEDS: Potassium Bicarbonate/Cit Ac 20 MEQ TAB PER TUBE SCH (16:25)
[2021-04-14] MEDS: Cholecalciferol 1,000 UNITS (25 MCG) TAB PO SCH (20:54)
[2021-04-14] MEDS: Vancomycin HCl 1.75 GM in Sodium Chloride 0.9% 500 ML IVPB SCH (23:28)
[2021-04-15] MEDS: Budesonide 0.5 MG/2 ML NEB NEB SCH ×2 (07:48→18:51)
[2021-04-15] MEDS: MEROPENEM 1 GM/50 ML 1 GM in Premix Bag 1 BAG IVPB SCH ×3 (08:30→16:31)
[2021-04-15] MEDS: Enoxaparin Sodium 40 MG/0.4 ML SYRINGE SC SCH (08:34)
[2021-04-15] MEDS: Ziprasidone 20 MG CAP PER TUBE SCH ×2 (08:47→20:15)
[2021-04-15] MEDS: predniSONE 20 MG TAB PER TUBE SCH (08:49)
[2021-04-15] MEDS: Metoprolol Tartrate 25 MG TAB PER TUBE SCH ×2 (08:50→20:15)
[2021-04-15] MEDS: Lorazepam 1 MG TAB PER TUBE SCH ×3 (08:51→20:15)
[2021-04-15] MEDS: Polyethylene Glycol 3350 17 GM Packet PER TUBE SCH (08:53)
[2021-04-15] MEDS: Senokot S 8.6-50 MG TAB PO SCH ×2 (08:53→20:15)
[2021-04-15] MEDS: Pantoprazole 40 MG GRANULES PACKET PER TUBE SCH (08:53)
[2021-04-15] MEDS: Ascorbic Acid 500 mg Chewable Tablet PO SCH (08:55)
[2021-04-15] MEDS: Micafungin 100 MG in Sodium Chloride 0.9% 100 ML IVPB SCH (10:00)
[2021-04-15] MEDS: Potassium Bicarbonate/Cit Ac 20 MEQ TAB PER TUBE SCH (14:26)
[2021-04-15] MEDS ORDERED: Metoprolol Tartrate 5 MG/5 ML VIAL ONE (15:14)
[2021-04-15] MEDS: Morphine 2 MG/ML VIAL SLOW IVP PRN (15:19)
[2021-04-15] MEDS: Labetalol HCl 100 MG/20 ML VIAL SLOW IVP PRN (15:21)
[2021-04-15 17:19] LABS: Hemoglobin 10.5 g/dL (12.0-16.0); Mean Corpuscular HGB CONC 31.9 g/dL (32.0-36.0); Mean Corpuscular Hemoglobin 30.4 pg (27.0-31.0); Mean Corpuscular Volume 95.4 fL (78.0-98.0); RBC Distribution Width 13.7 % (11.5-14.5); Red Blood Cell (RBC) Count 3.46 mill/uL (4.20-5.40); White Blood Cell (WBC) Count 10.4 thou/uL (4.8-10.8)
[2021-04-15 17:30] LABS: Anion Gap 14 mmol/L (10-20); BUN (Urea Nitrogen) 57 mg/dL (9.8-20.1); Calc. Creatinine Clearance 158 mL/min (70-130); Calcium 7.8 mg/dL (7.8-10.44); Carbon Dioxide 31 mmol/L (22-29); Chloride 104 mmol/L (98-107); Glucose 149 mg/dL (70-105); Potassium 4.5 mmol/L (3.5-5.1); Sodium 144 mmol/L (136-145)
[2021-04-15 18:09] LABS: Band 23 % (5-11); Large Platelets SLIGHT; Lymphocytes 4 % (21-51); MDiff Complete? YES; Mean Platelet Volume 12.3 fL (7.4-10.4); Monocytes 1 % (0-10); Neutrophil 72 % (42-75); Platelet Count 59 thou/uL (130-400); Platelet Morphology Comment Appears Decreased; Polychromasia SLIGHT = 2-3 cells (100X) (0-2/hpf); Vacuoles SLIGHT
[2021-04-15] MEDS: Cholecalciferol 1,000 UNITS (25 MCG) TAB PO SCH (20:15)
[2021-04-15 21:56] LABS: Vancomycin, Trough 41.6 ug/mL
[2021-04-16] MEDS: MEROPENEM 1 GM/50 ML 1 GM in Premix Bag 1 BAG IVPB SCH ×3 (00:04→17:00)
[2021-04-16] MEDS: Lorazepam 2 MG/ML VIAL SLOW IVP PRN ×2 (03:05→10:27)
[2021-04-16] MEDS: Labetalol HCl 100 MG/20 ML VIAL SLOW IVP PRN ×2 (04:23→23:30)
[2021-04-16 05:54] LABS: Anion Gap 11 mmol/L (10-20); BUN (Urea Nitrogen) 58 mg/dL (9.8-20.1); Calc. Creatinine Clearance 160 mL/min (70-130); Calcium 8.1 mg/dL (7.8-10.44); Carbon Dioxide 36 mmol/L (22-29); Chloride 102 mmol/L (98-107); Glucose 113 mg/dL (70-105); Potassium 4.2 mmol/L (3.5-5.1); Sodium 145 mmol/L (136-145)
[2021-04-16 06:22] LABS: Band 20 % (5-11); Hemoglobin 9.8 g/dL (12.0-16.0); Hypochromia SLIGHT = 6-15 cells (100X) (0-5/hpf); Lymphocytes 3 % (21-51); MDiff Complete? YES; Mean Corpuscular HGB CONC 30.5 g/dL (32.0-36.0); Mean Corpuscular Hemoglobin 29.6 pg (27.0-31.0); Mean Corpuscular Volume 97.3 fL (78.0-98.0); Mean Platelet Volume 12.8 fL (7.4-10.4); Metamyelocyte 5 % (0-0); Monocytes 4 % (0-10); Neutrophil 66 % (42-75); Platelet Count 84 thou/uL (130-400); Platelet Morphology Comment Appears Decreased; RBC Distribution Width 13.6 % (11.5-14.5); Reactive Lymphocytes 2 % (0-10); Red Blood Cell (RBC) Count 3.31 mill/uL (4.20-5.40); White Blood Cell (WBC) Count 10.7 thou/uL (4.8-10.8)
[2021-04-16] MEDS: Budesonide 0.5 MG/2 ML NEB NEB SCH ×2 (08:41→19:02)
[2021-04-16] MEDS: Enoxaparin Sodium 40 MG/0.4 ML SYRINGE SC SCH (08:43)
[2021-04-16] MEDS: Micafungin 100 MG in Sodium Chloride 0.9% 100 ML IVPB SCH (08:44)
[2021-04-16] MEDS: Senokot S 8.6-50 MG TAB PO SCH ×2 (08:54→20:13)
[2021-04-16] MEDS: Pantoprazole 40 MG GRANULES PACKET PER TUBE SCH (08:54)
[2021-04-16] MEDS: Lorazepam 1 MG TAB PER TUBE SCH ×3 (08:54→20:13)
[2021-04-16] MEDS: predniSONE 20 MG TAB PER TUBE SCH (08:55)
[2021-04-16] MEDS: Metoprolol Tartrate 25 MG TAB PER TUBE SCH ×2 (08:55→20:13)
[2021-04-16] MEDS: Ziprasidone 20 MG CAP PER TUBE SCH ×2 (08:55→20:13)
[2021-04-16] MEDS: Polyethylene Glycol 3350 17 GM Packet PER TUBE SCH (09:31)
[2021-04-16] MEDS: Ascorbic Acid 500 mg Chewable Tablet PO SCH (09:57)
[2021-04-16] MEDS: Potassium Bicarbonate/Cit Ac 20 MEQ TAB PER TUBE SCH (15:48)
[2021-04-16] MEDS: Cholecalciferol 1,000 UNITS (25 MCG) TAB PO SCH (20:13)
[2021-04-16] MEDS ORDERED: Vancomycin 1 GM in Premix Bag 1 BAG IVPB SCH (22:00)
[2021-04-17] MEDS: MEROPENEM 1 GM/50 ML 1 GM in Premix Bag 1 BAG IVPB SCH ×3 (00:34→16:48)
[2021-04-17 04:50] LABS: Anion Gap 9 mmol/L (10-20); BUN (Urea Nitrogen) 59 mg/dL (9.8-20.1); Calc. Creatinine Clearance 165 mL/min (70-130); Calcium 8.3 mg/dL (7.8-10.44); Carbon Dioxide 37 mmol/L (22-29); Chloride 103 mmol/L (98-107); Glucose 127 mg/dL (70-105); Potassium 3.7 mmol/L (3.5-5.1); Sodium 145 mmol/L (136-145)
[2021-04-17 04:51] LABS: Vancomycin, Random 33.5 ug/mL (See Comment)
[2021-04-17 04:52] LABS: Band 8 % (5-11); Hemoglobin 10.1 g/dL (12.0-16.0); Hypochromia SLIGHT = 6-15 cells (100X) (0-5/hpf); Lymphocytes 6 % (21-51); MDiff Complete? YES; Mean Corpuscular HGB CONC 31.3 g/dL (32.0-36.0); Mean Platelet Volume 9.1 fL (7.4-10.4); Neutrophil 86 % (42-75); Platelet Count 70 thou/uL (130-400); Platelet Morphology Comment Appears Decreased; RBC Distribution Width 13.5 % (11.5-14.5); Red Blood Cell (RBC) Count 3.36 mill/uL (4.20-5.40); White Blood Cell (WBC) Count 9.4 thou/uL (4.8-10.8)
[2021-04-17] MEDS: Budesonide 0.5 MG/2 ML NEB NEB SCH ×2 (07:27→18:34)
[2021-04-17] MEDS: acetaZOLAMIDE Sodium 500 mg Vial IVP SCH ×2 (09:12→20:05)
[2021-04-17] MEDS: Polyethylene Glycol 3350 17 GM Packet PER TUBE SCH (09:13)
[2021-04-17] MEDS: Micafungin 100 MG in Sodium Chloride 0.9% 100 ML IVPB SCH (09:13)
[2021-04-17] MEDS: Metoprolol Tartrate 25 MG TAB PER TUBE SCH ×2 (09:14→20:06)
[2021-04-17] MEDS: Pantoprazole 40 MG GRANULES PACKET PER TUBE SCH (09:14)
[2021-04-17] MEDS: Lorazepam 1 MG TAB PER TUBE SCH ×3 (09:14→20:06)
[2021-04-17] MEDS: Enoxaparin Sodium 40 MG/0.4 ML SYRINGE SC SCH (09:14)
[2021-04-17] MEDS: Senokot S 8.6-50 MG TAB PO SCH ×2 (09:14→20:05)
[2021-04-17] MEDS: Ziprasidone 20 MG CAP PER TUBE SCH ×2 (09:14→20:06)
[2021-04-17] MEDS: predniSONE 20 MG TAB PER TUBE SCH (09:14)
[2021-04-17] MEDS ORDERED: Sterile Water 10 ML ONE ×2 (09:26→19:57)
[2021-04-17] MEDS: Ascorbic Acid 500 mg Chewable Tablet PO SCH (09:28)
[2021-04-17] MEDS: HumaLOG 300 UNITS/3 ML VIAL SC PRN (11:40)
[2021-04-17] MEDS: Potassium Bicarbonate/Cit Ac 20 MEQ TAB PER TUBE SCH (15:25)
[2021-04-17] MEDS: fentaNYL 50 mcg/hour Patch TD SCH (16:24)
[2021-04-17] MEDS: Cholecalciferol 1,000 UNITS (25 MCG) TAB PO SCH (20:05)
[2021-04-18] MEDS: MEROPENEM 1 GM/50 ML 1 GM in Premix Bag 1 BAG IVPB SCH ×3 (01:10→16:32)
[2021-04-18 02:55] LABS: #Lymphocytes 0.4 thou/uL (1.20-3.40); #Monocytes 0.2 thou/uL (0.11-0.59); #Neutrophils 7.9 thou/uL (1.40-6.50); %Eosinophils 0.3 % (0.0-10.0); %Lymphocytes 4.9 % (21.0-51.0); %Monocytes 2.2 % (0.0-10.0); %Neutrophils 92.6 % (42.0-75.0); Mean Corpuscular HGB CONC 31.4 g/dL (32.0-36.0); Mean Corpuscular Hemoglobin 30.6 pg (27.0-31.0); Mean Corpuscular Volume 97.4 fL (78.0-98.0); Mean Platelet Volume 12.6 fL (7.4-10.4); Platelet Count 60 thou/uL (130-400); RBC Distribution Width 13.4 % (11.5-14.5); Red Blood Cell (RBC) Count 3.27 mill/uL (4.20-5.40); White Blood Cell (WBC) Count 8.5 thou/uL (4.8-10.8)
[2021-04-18 03:11] LABS: Anion Gap 11 mmol/L (10-20); BUN (Urea Nitrogen) 58 mg/dL (9.8-20.1); Calc. Creatinine Clearance 167 mL/min (70-130); Calcium 8.3 mg/dL (7.8-10.44); Carbon Dioxide 37 mmol/L (22-29); Chloride 103 mmol/L (98-107); Glucose 131 mg/dL (70-105); Potassium 3.3 mmol/L (3.5-5.1); Sodium 148 mmol/L (136-145)
[2021-04-18] MEDS ORDERED: Potassium Chloride 40 MEQ in Sodium Chloride 0.9% 250 ML 250 ML IVPB SCH (07:00)
[2021-04-18] MEDS: Budesonide 0.5 MG/2 ML NEB NEB SCH ×2 (07:15→18:12)
[2021-04-18] MEDS: Enoxaparin Sodium 40 MG/0.4 ML SYRINGE SC SCH (09:33)
[2021-04-18] MEDS: Ascorbic Acid 500 mg Chewable Tablet PO SCH (09:33)
[2021-04-18] MEDS: Pantoprazole 40 MG GRANULES PACKET PER TUBE SCH (09:33)
[2021-04-18] MEDS: Micafungin 100 MG in Sodium Chloride 0.9% 100 ML IVPB SCH (09:33)
[2021-04-18] MEDS: predniSONE 20 MG TAB PER TUBE SCH (09:33)
[2021-04-18] MEDS: Scopolamine 1.5 mg/72 hour Patch TD SCH (09:34)
[2021-04-18] MEDS: Metoprolol Tartrate 25 MG TAB PER TUBE SCH ×2 (09:34→20:28)
[2021-04-18] MEDS: Polyethylene Glycol 3350 17 GM Packet PER TUBE SCH (09:35)
[2021-04-18] MEDS: Senokot S 8.6-50 MG TAB PO SCH ×2 (09:36→20:28)
[2021-04-18] MEDS: Lorazepam 1 MG TAB PER TUBE SCH ×4 (10:48→23:33)
[2021-04-18] MEDS: Ziprasidone 20 MG CAP PER TUBE SCH ×2 (11:18→20:28)
[2021-04-18] MEDS: Potassium Bicarbonate/Cit Ac 20 MEQ TAB PER TUBE SCH (16:27)
[2021-04-18] MEDS: Vancomycin 1 GM in Premix Bag 1 BAG IVPB SCH (17:25)
[2021-04-18] MEDS: Cholecalciferol 1,000 UNITS (25 MCG) TAB PO SCH (20:28)
[2021-04-19] MEDS: MEROPENEM 1 GM/50 ML 1 GM in Premix Bag 1 BAG IVPB SCH ×3 (00:49→17:01)
[2021-04-19 04:12] LABS: #Lymphocytes 0.5 thou/uL (1.20-3.40); #Monocytes 0.2 thou/uL (0.11-0.59); #Neutrophils 6.5 thou/uL (1.40-6.50); %Basophils 0.2 % (0.0-1.0); %Eosinophils 0.6 % (0.0-10.0); %Lymphocytes 7.3 % (21.0-51.0); %Monocytes 2.3 % (0.0-10.0); %Neutrophils 89.6 % (42.0-75.0); Hemoglobin 8.9 g/dL (12.0-16.0); Mean Corpuscular HGB CONC 30.9 g/dL (32.0-36.0); Mean Corpuscular Hemoglobin 30.4 pg (27.0-31.0); Mean Corpuscular Volume 98.3 fL (78.0-98.0); Mean Platelet Volume 10.7 fL (7.4-10.4); Platelet Count 59 thou/uL (130-400); RBC Distribution Width 13.5 % (11.5-14.5); Red Blood Cell (RBC) Count 2.93 mill/uL (4.20-5.40); White Blood Cell (WBC) Count 7.2 thou/uL (4.8-10.8)
[2021-04-19 04:21] LABS: Anion Gap 11 mmol/L (10-20); BUN (Urea Nitrogen) 55 mg/dL (9.8-20.1); Calc. Creatinine Clearance 169 mL/min (70-130); Calcium 8.2 mg/dL (7.8-10.44); Carbon Dioxide 37 mmol/L (22-29); Chloride 105 mmol/L (98-107); Glucose 128 mg/dL (70-105); Potassium 3.4 mmol/L (3.5-5.1); Sodium 150 mmol/L (136-145)
[2021-04-19] MEDS ORDERED: Potassium Bicarbonate/Cit Ac 20 MEQ TAB PER TUBE SCH (06:30)
[2021-04-19] MEDS: Dextrose 5% in Water 1,000 ML IV SCH ×2 (07:44→22:15)
[2021-04-19] MEDS: Micafungin 100 MG in Sodium Chloride 0.9% 100 ML IVPB SCH (07:45)
[2021-04-19] MEDS: predniSONE 20 MG TAB PER TUBE SCH (07:46)
[2021-04-19] MEDS: Pantoprazole 40 MG GRANULES PACKET PER TUBE SCH (07:46)
[2021-04-19] MEDS: Metoprolol Tartrate 25 MG TAB PER TUBE SCH ×2 (07:47→22:15)
[2021-04-19] MEDS: Ascorbic Acid 500 mg Chewable Tablet PO SCH (07:47)
[2021-04-19] MEDS: Budesonide 0.5 MG/2 ML NEB NEB SCH ×2 (07:59→18:23)
[2021-04-19] MEDS: Senokot S 8.6-50 MG TAB PO SCH ×2 (10:16→22:15)
[2021-04-19] MEDS: Polyethylene Glycol 3350 17 GM Packet PER TUBE SCH (10:16)
[2021-04-19] MEDS: Morphine 2 MG/ML VIAL SLOW IVP PRN (10:30)
[2021-04-19] MEDS: Potassium Bicarbonate/Cit Ac 20 MEQ TAB PER TUBE SCH (15:34)
[2021-04-19] MEDS: Vancomycin 1 GM in Premix Bag 1 BAG IVPB SCH (17:00)
[2021-04-19] MEDS: Lorazepam 2 MG/ML VIAL SLOW IVP PRN (17:00)
[2021-04-20] MEDS: Cholecalciferol 1,000 UNITS (25 MCG) TAB PO SCH (00:53)
[2021-04-20] MEDS: Budesonide 0.5 MG/2 ML NEB NEB SCH ×2 (05:21→18:08)
[2021-04-20 05:45] LABS: #Lymphocytes 0.9 thou/uL (1.20-3.40); #Monocytes 0.1 thou/uL (0.11-0.59); #Neutrophils 7.1 thou/uL (1.40-6.50); %Basophils 0.2 % (0.0-1.0); %Eosinophils 0.4 % (0.0-10.0); %Lymphocytes 10.9 % (21.0-51.0); %Monocytes 1.6 % (0.0-10.0); Hemoglobin 9.1 g/dL (12.0-16.0); Mean Corpuscular HGB CONC 31.6 g/dL (32.0-36.0); Mean Corpuscular Hemoglobin 31.1 pg (27.0-31.0); Mean Corpuscular Volume 98.5 fL (78.0-98.0); Mean Platelet Volume 12.1 fL (7.4-10.4); Platelet Count 65 thou/uL (130-400); RBC Distribution Width 13.3 % (11.5-14.5); Red Blood Cell (RBC) Count 2.92 mill/uL (4.20-5.40); White Blood Cell (WBC) Count 8.1 thou/uL (4.8-10.8)
[2021-04-20] MEDS: Dexmedetomidine 1,000 MCG in Sodium Chloride 0.9% 250 ML 240 ML IVPB SCH ×2 (06:05→17:26)
[2021-04-20 06:11] LABS: BUN (Urea Nitrogen) 51 mg/dL (9.8-20.1); Calc. Creatinine Clearance 171 mL/min (70-130); Calcium 8.3 mg/dL (7.8-10.44); Glucose 144 mg/dL (70-105)
[2021-04-20 06:36] LABS: Anion Gap 11 mmol/L (10-20); Carbon Dioxide 35 mmol/L (22-29); Chloride 102 mmol/L (98-107); Potassium 3.6 mmol/L (3.5-5.1); Sodium 144 mmol/L (136-145)
[2021-04-20] MEDS: Acetaminophen 325 MG TAB PO PRN (08:08)
[2021-04-20] MEDS: Senokot S 8.6-50 MG TAB PO SCH ×2 (08:08→22:58)
[2021-04-20] MEDS: Pantoprazole 40 MG GRANULES PACKET PER TUBE SCH (08:09)
[2021-04-20] MEDS: Polyethylene Glycol 3350 17 GM Packet PER TUBE SCH (08:09)
[2021-04-20] MEDS: predniSONE 20 MG TAB PER TUBE SCH (08:09)
[2021-04-20] MEDS: Metoprolol Tartrate 25 MG TAB PER TUBE SCH ×2 (08:09→22:15)
[2021-04-20] MEDS: Ascorbic Acid 500 mg Chewable Tablet PO SCH (08:09)
[2021-04-20] MEDS ORDERED: Norepinephrine 8 MG/0.9% NS 250 ML ONE (10:16)
[2021-04-20] MEDS ORDERED: Norepinephrine 8 MG/0.9% NS 250 ML IVPB SCH (11:15)
[2021-04-20] MEDS: Cefepime 1 GM in Sodium Chloride 0.9% 100 ML IVPB SCH ×2 (11:27→22:57)
[2021-04-20 17:20] LABS: Vancomycin, Trough 25.4 ug/mL
[2021-04-20] MEDS: Potassium Bicarbonate/Cit Ac 20 MEQ TAB PER TUBE SCH ×2 (17:24→22:57)
[2021-04-21] MEDS: Cholecalciferol 1,000 UNITS (25 MCG) TAB PO SCH ×2 (01:19→21:53)
[2021-04-21 04:43] LABS: Anion Gap 10 mmol/L (10-20); BUN (Urea Nitrogen) 51 mg/dL (9.8-20.1); Calc. Creatinine Clearance 169 mL/min (70-130); Calcium 8.6 mg/dL (7.8-10.44); Carbon Dioxide 37 mmol/L (22-29); Chloride 102 mmol/L (98-107); Glucose 104 mg/dL (70-105); Hemoglobin 10.6 g/dL (12.0-16.0); Mean Corpuscular HGB CONC 30.5 g/dL (32.0-36.0); Mean Corpuscular Volume 98.3 fL (78.0-98.0); Mean Platelet Volume 12.8 fL (7.4-10.4); Platelet Count 69 thou/uL (130-400); Potassium 4.5 mmol/L (3.5-5.1); RBC Distribution Width 13.4 % (11.5-14.5); Red Blood Cell (RBC) Count 3.52 mill/uL (4.20-5.40); Sodium 144 mmol/L (136-145); White Blood Cell (WBC) Count 17.5 thou/uL (4.8-10.8)
[2021-04-21] MEDS ORDERED: VANCOMYCIN 1.25 GM/250 ML BAG 1.25 GM in Premix Bag 1 BAG IVPB SCH (06:00)
[2021-04-21 06:17] LABS: MDiff Complete? YES
[2021-04-21 06:18] LABS: Band 40 % (5-11); Lymphocytes 9 % (21-51); Monocytes 1 % (0-10); Neutrophil 49 % (42-75); Platelet Morphology Comment Appears Decreased; Reactive Lymphocytes 1 % (0-10)
[2021-04-21] MEDS: Budesonide 0.5 MG/2 ML NEB NEB SCH ×2 (06:49→18:16)
[2021-04-21 08:26] LABS: Vancomycin, Random 23.1 ug/mL (See Comment)
[2021-04-21] MEDS ORDERED: Vancomycin 1 GM in Premix Bag 1 BAG IVPB SCH (08:45)
[2021-04-21] MEDS: Scopolamine 1.5 mg/72 hour Patch TD SCH (09:00)
[2021-04-21] MEDS: Cefepime 1 GM in Sodium Chloride 0.9% 100 ML IVPB SCH ×2 (11:00→21:55)
[2021-04-21] MEDS: Lorazepam 2 MG/ML VIAL SLOW IVP PRN (11:16)
[2021-04-21] MEDS ORDERED: Albumin 25% 25 GM/100 ML BOT IVPB SCH (11:22)
[2021-04-21] MEDS ORDERED: Albumin 25% 100 ML ONE (11:34)
[2021-04-21] MEDS: Ascorbic Acid 500 mg Chewable Tablet PO SCH (13:09)
[2021-04-21] MEDS: Pantoprazole 40 MG GRANULES PACKET PER TUBE SCH (13:09)
[2021-04-21] MEDS: Senokot S 8.6-50 MG TAB PO SCH ×2 (13:09→21:54)
[2021-04-21] MEDS: Polyethylene Glycol 3350 17 GM Packet PER TUBE SCH (13:09)
[2021-04-21] MEDS: Metoprolol Tartrate 25 MG TAB PER TUBE SCH ×2 (13:09→21:55)
[2021-04-21] MEDS: predniSONE 20 MG TAB PER TUBE SCH (13:09)
[2021-04-21] MEDS: Acetaminophen 325 MG TAB PO PRN (21:54)
[2021-04-22 05:31] LABS: Anion Gap 11 mmol/L (10-20); BUN (Urea Nitrogen) 59 mg/dL (9.8-20.1); Calc. Creatinine Clearance 129 mL/min (70-130); Calcium 8.5 mg/dL (7.8-10.44); Carbon Dioxide 36 mmol/L (22-29); Chloride 103 mmol/L (98-107); Glucose 98 mg/dL (70-105); Potassium 4.6 mmol/L (3.5-5.1); Sodium 145 mmol/L (136-145)
[2021-04-22 06:03] LABS: Band 24 % (5-11); Hemoglobin 8.1 g/dL (12.0-16.0); Large Platelets SLIGHT; Lymphocytes 6 % (21-51); MDiff Complete? YES; Mean Corpuscular HGB CONC 31.4 g/dL (32.0-36.0); Mean Corpuscular Hemoglobin 30.9 pg (27.0-31.0); Mean Corpuscular Volume 98.4 fL (78.0-98.0); Mean Platelet Volume 10.8 fL (7.4-10.4); Monocytes 3 % (0-10); Neutrophil 67 % (42-75); Nucleated RBC 1 % (0); Platelet Count 64 thou/uL (130-400); Platelet Morphology Comment Appears Decreased; RBC Distribution Width 13.5 % (11.5-14.5); Red Blood Cell (RBC) Count 2.62 mill/uL (4.20-5.40); White Blood Cell (WBC) Count 18.5 thou/uL (4.8-10.8)
[2021-04-22] MEDS: Budesonide 0.5 MG/2 ML NEB NEB SCH ×2 (07:05→19:30)
[2021-04-22] MEDS ORDERED: Fleet Enema 133 ML BOT PR SCH (10:15)
[2021-04-22] MEDS: Senokot S 8.6-50 MG TAB PO SCH ×2 (11:08→21:10)
[2021-04-22] MEDS: Ascorbic Acid 500 mg Chewable Tablet PO SCH (11:08)
[2021-04-22] MEDS: Polyethylene Glycol 3350 17 GM Packet PER TUBE SCH (11:08)
[2021-04-22] MEDS: Pantoprazole 40 MG GRANULES PACKET PER TUBE SCH (11:08)
[2021-04-22] MEDS: predniSONE 20 MG TAB PER TUBE SCH (11:31)
[2021-04-22] MEDS: Metoprolol Tartrate 25 MG TAB PER TUBE SCH (11:31)
[2021-04-22] MEDS: Lactated Ringer's 1,000 ML IV SCH (11:44)
[2021-04-22] MEDS: Cefepime 1 GM in Sodium Chloride 0.9% 100 ML IVPB SCH ×2 (11:57→22:23)
[2021-04-22] MEDS: Morphine 2 MG/ML VIAL SLOW IVP PRN (14:30)
[2021-04-22] MEDS: Metoclopramide HCl 10 MG/2 ML VIAL IVP SCH ×2 (14:31→22:23)
[2021-04-22] MEDS: Potassium Bicarbonate/Cit Ac 20 MEQ TAB PER TUBE SCH (17:54)
[2021-04-22 18:35] LABS: Vancomycin, Random 18.5 ug/mL (See Comment)
[2021-04-22] MEDS: Enoxaparin Sodium 60 MG/0.6 ML SYRINGE SC SCH (22:24)
[2021-04-22] MEDS ORDERED: Vancomycin HCl 750 MG in Sodium Chloride 0.9% 250 ML 250 ML IVPB SCH (23:59)
[2021-04-23] MEDS: Lactated Ringer's 1,000 ML IV SCH ×2 (01:00→15:51)
[2021-04-23] MEDS: Dexmedetomidine 1,000 MCG in Sodium Chloride 0.9% 250 ML 240 ML IVPB SCH (01:01)
[2021-04-23] MEDS: Cholecalciferol 1,000 UNITS (25 MCG) TAB PO SCH ×2 (01:44→21:00)
[2021-04-23 05:14] LABS: #Lymphocytes 0.6 thou/uL (1.20-3.40); #Monocytes 0.3 thou/uL (0.11-0.59); #Neutrophils 12.9 thou/uL (1.40-6.50); %Monocytes 2.1 % (0.0-10.0); %Neutrophils 93.8 % (42.0-75.0); Hemoglobin 7.8 g/dL (12.0-16.0); Mean Corpuscular HGB CONC 29.9 g/dL (32.0-36.0); Mean Corpuscular Hemoglobin 29.6 pg (27.0-31.0); Mean Corpuscular Volume 98.9 fL (78.0-98.0); Mean Platelet Volume 12.9 fL (7.4-10.4); Platelet Count 59 thou/uL (130-400); RBC Distribution Width 13.5 % (11.5-14.5); Red Blood Cell (RBC) Count 2.63 mill/uL (4.20-5.40); White Blood Cell (WBC) Count 13.7 thou/uL (4.8-10.8)
[2021-04-23 05:19] LABS: ALT (SGPT) 45 U/L (8-55); AST (SGOT) 38 U/L (5-34); Albumin 1.8 g/dL (3.5-5.0); Alkaline Phosphatase 129 U/L (40-110); Bilirubin, Direct 0.4 mg/dL (0.1-0.3); Bilirubin, Total 0.5 mg/dL (0.2-1.2); Protein, Total 4.9 g/dL (6.0-8.3)
[2021-04-23 05:36] LABS: Anion Gap 14 mmol/L (10-20); BUN (Urea Nitrogen) 64 mg/dL (9.8-20.1); Calc. Creatinine Clearance 105 mL/min (70-130); Calcium 7.9 mg/dL (7.8-10.44); Carbon Dioxide 32 mmol/L (22-29); Chloride 103 mmol/L (98-107); Glucose 81 mg/dL (70-105); Potassium 4.4 mmol/L (3.5-5.1); Sodium 145 mmol/L (136-145)
[2021-04-23] MEDS: Metoclopramide HCl 10 MG/2 ML VIAL IVP SCH ×3 (07:02→22:21)
[2021-04-23] MEDS: Budesonide 0.5 MG/2 ML NEB NEB SCH ×2 (07:05→19:04)
[2021-04-23] MEDS ORDERED: Bupivacaine 0.25% HCL 30 ML VIAL ONE (07:20)
[2021-04-23] MEDS ORDERED: EPINEPHrine 1 MG/ML AMP ONE (07:20)
[2021-04-23] MEDS ORDERED: Fentanyl 100 MCG/2 ML VIAL ONE (07:39)
[2021-04-23] MEDS ORDERED: Midazolam HCl 2 mg/2 ml Vial ONE ×2 (07:39→07:40)
[2021-04-23] MEDS: Enoxaparin Sodium 60 MG/0.6 ML SYRINGE SC SCH ×2 (08:15→22:05)
[2021-04-23] MEDS: Ascorbic Acid 500 mg Chewable Tablet PO SCH (08:15)
[2021-04-23] MEDS: Senokot S 8.6-50 MG TAB PO SCH ×2 (08:16→21:00)
[2021-04-23] MEDS: Pantoprazole 40 MG GRANULES PACKET PER TUBE SCH (08:16)
[2021-04-23] MEDS: Polyethylene Glycol 3350 17 GM Packet PER TUBE SCH (08:16)
[2021-04-23] MEDS ORDERED: Rocuronium Bromide 10 MG/ML (10ML VIAL) ONE (08:38)
[2021-04-23] MEDS ORDERED: PHENYLEPHRINE-NS 100 MCG/ML 10 ML SYRINGE ONE (08:38)
[2021-04-23] MEDS ORDERED: Vecuronium 10 MG VIAL ONE (08:38)
[2021-04-23] MEDS ORDERED: ePHEDrine 50 MG/ML VIAL ONE (08:38)
[2021-04-23] MEDS: Pantoprazole 40 MG VIAL IVP SCH ×2 (09:00→15:23)
[2021-04-23] MEDS: methylPREDNISolone Sod Succ 40 MG VIAL IVP SCH ×2 (09:00→15:23)
[2021-04-23] MEDS ORDERED: Albumin 5% 250 ML ONE (09:10)
[2021-04-23] MEDS ORDERED: Phenylephrine 10 MG/ML VIAL ONE (10:01)
[2021-04-23] MEDS ORDERED: Rocuronium Bromide 50 MG/5 ML VIAL ONE (11:24)
[2021-04-23] MEDS ORDERED: Albumin 5% 500 ML ONE (11:27)
[2021-04-23 12:21] LABS: Vancomycin, Random 23.1 ug/mL (See Comment)
[2021-04-23] MEDS: Lorazepam 2 MG/ML VIAL SLOW IVP PRN (12:21)
[2021-04-23] MEDS: Cefepime 1 GM in Sodium Chloride 0.9% 100 ML IVPB SCH ×2 (12:21→22:21)
[2021-04-23] MEDS ORDERED: Pantoprazole 40 MG VIAL ONE (15:19)
[2021-04-23] MEDS ORDERED: methylPREDNISolone Sod Succ 40 MG VIAL ONE (15:19)
[2021-04-23] MEDS: Potassium Bicarbonate/Cit Ac 20 MEQ TAB PER TUBE SCH (15:50)
[2021-04-24] MEDS: Lactated Ringer's 1,000 ML IV SCH ×3 (03:00→21:50)
[2021-04-24 04:44] LABS: Anion Gap 16 mmol/L (10-20); BUN (Urea Nitrogen) 63 mg/dL (9.8-20.1); Calc. Creatinine Clearance 93 mL/min (70-130); Carbon Dioxide 29 mmol/L (22-29); Chloride 105 mmol/L (98-107); Glucose 101 mg/dL (70-105); Potassium 4.8 mmol/L (3.5-5.1); Sodium 145 mmol/L (136-145)
[2021-04-24 05:19] LABS: #Lymphocytes 0.6 thou/uL (1.20-3.40); #Monocytes 0.2 thou/uL (0.11-0.59); #Neutrophils 8.2 thou/uL (1.40-6.50); %Basophils 0.1 % (0.0-1.0); %Eosinophils 0.1 % (0.0-10.0); %Lymphocytes 6.5 % (21.0-51.0); %Monocytes 1.9 % (0.0-10.0); %Neutrophils 91.4 % (42.0-75.0); Hemoglobin 4.7 g/dL (12.0-16.0); Mean Corpuscular HGB CONC 30.9 g/dL (32.0-36.0); Mean Corpuscular Hemoglobin 30.6 pg (27.0-31.0); Mean Corpuscular Volume 98.9 fL (78.0-98.0); Mean Platelet Volume 11.2 fL (7.4-10.4); Platelet Count 57 thou/uL (130-400); RBC Distribution Width 13.3 % (11.5-14.5); Red Blood Cell (RBC) Count 1.54 mill/uL (4.20-5.40); White Blood Cell (WBC) Count 8.9 thou/uL (4.8-10.8)
[2021-04-24] MEDS: Metoclopramide HCl 10 MG/2 ML VIAL IVP SCH ×3 (06:35→21:51)
[2021-04-24] MEDS: Budesonide 0.5 MG/2 ML NEB NEB SCH ×2 (07:18→18:16)
[2021-04-24] MEDS: Dexmedetomidine 1,000 MCG in Sodium Chloride 0.9% 250 ML 240 ML IVPB SCH (07:20)
[2021-04-24] MEDS: Ascorbic Acid 500 mg Chewable Tablet PO SCH (08:21)
[2021-04-24] MEDS: Polyethylene Glycol 3350 17 GM Packet PER TUBE SCH (08:21)
[2021-04-24] MEDS: Senokot S 8.6-50 MG TAB PO SCH ×2 (08:21→21:50)
[2021-04-24] MEDS: Scopolamine 1.5 mg/72 hour Patch TD SCH (08:24)
[2021-04-24] MEDS: methylPREDNISolone Sod Succ 40 MG VIAL IVP SCH (12:47)
[2021-04-24] MEDS: Pantoprazole 40 MG VIAL IVP SCH ×2 (12:48→21:50)
[2021-04-24 12:54] LABS: Vancomycin, Random 23.1 ug/mL (See Comment)
[2021-04-24] MEDS ORDERED: VANCOMYCIN IVPB PRN (13:20)
[2021-04-24] MEDS: Potassium Bicarbonate/Cit Ac 20 MEQ TAB PER TUBE SCH (15:08)
[2021-04-24 15:49] LABS: Hemoglobin 8.1 g/dL (12.0-16.0)
[2021-04-24] MEDS: Lorazepam 2 MG/ML VIAL SLOW IVP PRN ×2 (18:36→19:35)
[2021-04-24] MEDS: Labetalol HCl 100 MG/20 ML VIAL SLOW IVP PRN (19:33)
[2021-04-24] MEDS: Cholecalciferol 1,000 UNITS (25 MCG) TAB PO SCH (21:50)
[2021-04-25] MEDS: Dexmedetomidine 1,000 MCG in Sodium Chloride 0.9% 250 ML 240 ML IVPB SCH (04:03)
[2021-04-25] MEDS: Metoclopramide HCl 10 MG/2 ML VIAL IVP SCH ×3 (05:57→21:28)
[2021-04-25] MEDS: Budesonide 0.5 MG/2 ML NEB NEB SCH ×2 (07:32→18:06)
[2021-04-25 07:40] LABS: Hemoglobin 8.4 g/dL (12.0-16.0); Mean Corpuscular Hemoglobin 31.1 pg (27.0-31.0); Mean Corpuscular Volume 94.3 fL (78.0-98.0); Platelet Count 70 thou/uL (130-400); RBC Distribution Width 13.4 % (11.5-14.5); White Blood Cell (WBC) Count 10.1 thou/uL (4.8-10.8)
[2021-04-25 07:41] LABS: #Lymphocytes 0.5 thou/uL (1.20-3.40); #Monocytes 0.2 thou/uL (0.11-0.59); #Neutrophils 9.5 thou/uL (1.40-6.50); %Basophils 0.1 % (0.0-1.0); %Eosinophils 0.1 % (0.0-10.0); %Lymphocytes 4.5 % (21.0-51.0); %Monocytes 2.2 % (0.0-10.0); %Neutrophils 93.1 % (42.0-75.0)
[2021-04-25 07:49] LABS: Anion Gap 18 mmol/L (10-20); BUN (Urea Nitrogen) 66 mg/dL (9.8-20.1); Calc. Creatinine Clearance 85 mL/min (70-130); Calcium 7.6 mg/dL (7.8-10.44); Carbon Dioxide 26 mmol/L (22-29); Chloride 106 mmol/L (98-107); Glucose 99 mg/dL (70-105); Potassium 4.9 mmol/L (3.5-5.1); Sodium 145 mmol/L (136-145)
[2021-04-25 08:04] LABS: Band 13 % (5-11); Lymphocytes 5 % (21-51); MDiff Complete? YES; Monocytes 1 % (0-10); Neutrophil 81 % (42-75); Platelet Morphology Comment Appears Decreased; Polychromasia SLIGHT = 2-3 cells (100X) (0-2/hpf)
[2021-04-25] MEDS: Ascorbic Acid 500 mg Chewable Tablet PO SCH (09:10)
[2021-04-25] MEDS: Senokot S 8.6-50 MG TAB PO SCH ×2 (09:10→21:28)
[2021-04-25] MEDS: Pantoprazole 40 MG VIAL IVP SCH ×2 (09:10→21:28)
[2021-04-25] MEDS: Polyethylene Glycol 3350 17 GM Packet PER TUBE SCH (09:11)
[2021-04-25] MEDS: methylPREDNISolone Sod Succ 40 MG VIAL IVP SCH (09:11)
[2021-04-25] MEDS: Lactated Ringer's 1,000 ML IV SCH (11:19)
[2021-04-25] MEDS: Morphine 2 MG/ML VIAL SLOW IVP PRN (13:06)
[2021-04-25] MEDS: Potassium Bicarbonate/Cit Ac 20 MEQ TAB PER TUBE SCH (15:21)
[2021-04-25] MEDS: Cholecalciferol 1,000 UNITS (25 MCG) TAB PO SCH (21:28)
[2021-04-26] MEDS: Dexmedetomidine 1,000 MCG in Sodium Chloride 0.9% 250 ML 240 ML IVPB SCH (02:15)
[2021-04-26] MEDS: Morphine 2 MG/ML VIAL SLOW IVP PRN ×3 (02:56→16:17)
[2021-04-26] MEDS: Lactated Ringer's 1,000 ML IV SCH (04:34)
[2021-04-26 05:05] LABS: #Lymphocytes 0.4 thou/uL (1.20-3.40); #Monocytes 0.2 thou/uL (0.11-0.59); #Neutrophils 8.1 thou/uL (1.40-6.50); %Basophils 0.3 % (0.0-1.0); %Eosinophils 0.4 % (0.0-10.0); %Lymphocytes 4.6 % (21.0-51.0); %Monocytes 2.6 % (0.0-10.0); Hemoglobin 8.2 g/dL (12.0-16.0); Mean Corpuscular HGB CONC 33.8 g/dL (32.0-36.0); Mean Corpuscular Hemoglobin 31.5 pg (27.0-31.0); Mean Corpuscular Volume 93.4 fL (78.0-98.0); Platelet Count 68 thou/uL (130-400); RBC Distribution Width 13.2 % (11.5-14.5); White Blood Cell (WBC) Count 8.8 thou/uL (4.8-10.8)
[2021-04-26 05:10] LABS: Anion Gap 16 mmol/L (10-20); BUN (Urea Nitrogen) 64 mg/dL (9.8-20.1); Calc. Creatinine Clearance 82 mL/min (70-130); Calcium 7.6 mg/dL (7.8-10.44); Carbon Dioxide 26 mmol/L (22-29); Chloride 105 mmol/L (98-107); Glucose 122 mg/dL (70-105); Sodium 142 mmol/L (136-145)
[2021-04-26] MEDS: Metoclopramide HCl 10 MG/2 ML VIAL IVP SCH ×3 (06:02→21:57)
[2021-04-26] MEDS: Budesonide 0.5 MG/2 ML NEB NEB SCH ×2 (08:01→18:58)
[2021-04-26] MEDS: Albumin 25% 25 GM/100 ML BOT IVPB SCH ×3 (09:10→21:57)
[2021-04-26] MEDS: Pantoprazole 40 MG VIAL IVP SCH ×2 (09:13→21:57)
[2021-04-26] MEDS: Ascorbic Acid 500 mg Chewable Tablet PO SCH (09:13)
[2021-04-26] MEDS: Senokot S 8.6-50 MG TAB PO SCH ×2 (09:13→21:57)
[2021-04-26] MEDS: Polyethylene Glycol 3350 17 GM Packet PER TUBE SCH (09:13)
[2021-04-26] MEDS: Lorazepam 2 MG/ML VIAL SLOW IVP PRN ×3 (13:26→17:16)
[2021-04-26] MEDS: Potassium Bicarbonate/Cit Ac 20 MEQ TAB PER TUBE SCH (16:52)
[2021-04-26] MEDS: Cholecalciferol 1,000 UNITS (25 MCG) TAB PO SCH (21:00)
[2021-04-27] MEDS: Albumin 25% 25 GM/100 ML BOT IVPB SCH ×4 (06:11→20:29)
[2021-04-27] MEDS: Metoclopramide HCl 10 MG/2 ML VIAL IVP SCH ×3 (07:14→21:31)
[2021-04-27] MEDS ORDERED: Albumin 25% 25 GM/100 ML BOT IVPB SCH (08:30)
[2021-04-27] MEDS: Budesonide 0.5 MG/2 ML NEB NEB SCH ×2 (08:34→18:45)
[2021-04-27] MEDS: Ascorbic Acid 500 mg Chewable Tablet PO SCH (09:38)
[2021-04-27] MEDS: Polyethylene Glycol 3350 17 GM Packet PER TUBE SCH (09:38)
[2021-04-27] MEDS: Senokot S 8.6-50 MG TAB PO SCH ×2 (09:39→20:30)
[2021-04-27] MEDS: Pantoprazole 40 MG VIAL IVP SCH ×2 (12:01→20:30)
[2021-04-27 13:07] LABS: #Eosinphils 0.1 thou/uL (0.0-0.7); #Lymphocytes 0.4 thou/uL (1.20-3.40); #Monocytes 0.1 thou/uL (0.11-0.59); #Neutrophils 4.9 thou/uL (1.40-6.50); %Eosinophils 1.5 % (0.0-10.0); %Lymphocytes 6.5 % (21.0-51.0); %Neutrophils 89.9 % (42.0-75.0); Hemoglobin 7.4 g/dL (12.0-16.0); Mean Corpuscular HGB CONC 32.9 g/dL (32.0-36.0); Mean Corpuscular Hemoglobin 31.6 pg (27.0-31.0); Platelet Count 49 thou/uL (130-400); RBC Distribution Width 13.4 % (11.5-14.5); Red Blood Cell (RBC) Count 2.34 mill/uL (4.20-5.40); White Blood Cell (WBC) Count 5.4 thou/uL (4.8-10.8)
[2021-04-27 13:58] LABS: Anion Gap 14 mmol/L (10-20); BUN (Urea Nitrogen) 64 mg/dL (9.8-20.1); Calc. Creatinine Clearance 69 mL/min (70-130); Calcium 7.6 mg/dL (7.8-10.44); Carbon Dioxide 25 mmol/L (22-29); Chloride 106 mmol/L (98-107); Glucose 158 mg/dL (70-105); Potassium 5.4 mmol/L (3.5-5.1); Sodium 140 mmol/L (136-145)
[2021-04-27] MEDS: Dexmedetomidine 1,000 MCG in Sodium Chloride 0.9% 250 ML 240 ML IVPB SCH ×2 (14:22→23:15)
[2021-04-27] MEDS: Potassium Bicarbonate/Cit Ac 20 MEQ TAB PER TUBE SCH (15:51)
[2021-04-27] MEDS: Lorazepam 2 MG/ML VIAL SLOW IVP PRN (16:13)
[2021-04-27] MEDS ORDERED: Labetalol HCl 100 MG/20 ML VIAL ONE (17:38)
[2021-04-27] MEDS: Labetalol HCl 100 MG/20 ML VIAL SLOW IVP PRN (17:39)
[2021-04-27 20:48] LABS: Bilirubin Negative (Negative); Blood, Urine 2+ (Negative); Clarity Turbid (Clear); Glucose, Urine (Dipstick) Normal (Negative); Ketone, Urine Negative (Negative); Leukocyte 75 Leu/uL (Negative); Mucous/LPF Rare LPF (<2+); Nitrite Negative (Negative); Protein, Urine (Dipstick) 100 mg/dL (Neg-Trace); Specific Gravity, Urine 1.018 (1.002-1.036); Squamous Epithelial 0-3 HPF (0-3); Urobilinogen Normal mg/dL (Less than 2); pH, Urine 6.5 (5.0-9.0)
[2021-04-27 21:12] LABS: Protein, Urine Random Quant 94 mg/dL (1-14); Sodium, Urine Less than 20 mmol/L (Not Available); Urea Nitrogen, Random Urine 401 mg/dl
[2021-04-27 21:19] LABS: Bacteria/HPF None Seen HPF (None Seen); WBC/HPF 0-3 HPF (0-3)
[2021-04-27 21:20] LABS: Renal Epithelial 0-3 HPF (None Seen)
[2021-04-27 21:21] LABS: Urine Culture Reflex Yes Yes
[2021-04-27] MEDS: Cholecalciferol 1,000 UNITS (25 MCG) TAB PO SCH (21:31)
[2021-04-27 23:37] LABS: Anion Gap 14 mmol/L (10-20); BUN (Urea Nitrogen) 63 mg/dL (9.8-20.1); Calc. Creatinine Clearance 69 mL/min (70-130); Calcium 7.8 mg/dL (7.8-10.44); Carbon Dioxide 28 mmol/L (22-29); Chloride 106 mmol/L (98-107); Glucose 128 mg/dL (70-105); Potassium 5.2 mmol/L (3.5-5.1); Sodium 143 mmol/L (136-145)
[2021-04-27] MEDS ORDERED: Furosemide 20 MG/2 ML VIAL SLOW IVP SCH (23:59)
[2021-04-28] MEDS: Albumin 25% 25 GM/100 ML BOT IVPB SCH ×3 (03:20→14:41)
[2021-04-28 04:06] LABS: #Lymphocytes 0.2 thou/uL (1.20-3.40); #Monocytes 0.1 thou/uL (0.11-0.59); #Neutrophils 5.2 thou/uL (1.40-6.50); %Basophils 0.3 % (0.0-1.0); %Eosinophils 0.8 % (0.0-10.0); %Lymphocytes 3.2 % (21.0-51.0); %Monocytes 1.9 % (0.0-10.0); %Neutrophils 93.8 % (42.0-75.0); Hemoglobin 7.5 g/dL (12.0-16.0); Mean Corpuscular HGB CONC 31.7 g/dL (32.0-36.0); Mean Corpuscular Hemoglobin 30.8 pg (27.0-31.0); Mean Corpuscular Volume 97.3 fL (78.0-98.0); Mean Platelet Volume 11.2 fL (7.4-10.4); Platelet Count 51 thou/uL (130-400); RBC Distribution Width 13.5 % (11.5-14.5); Red Blood Cell (RBC) Count 2.42 mill/uL (4.20-5.40); White Blood Cell (WBC) Count 5.5 thou/uL (4.8-10.8)
[2021-04-28 04:20] LABS: Magnesium 1.7 mg/dL (1.6-2.6); Phosphorus 5.2 mg/dL (2.3-4.7)
[2021-04-28 04:21] LABS: Anion Gap 13 mmol/L (10-20); BUN (Urea Nitrogen) 73 mg/dL (9.8-20.1); Calc. Creatinine Clearance 72 mL/min (70-130); Carbon Dioxide 26 mmol/L (22-29); Chloride 106 mmol/L (98-107); Glucose 124 mg/dL (70-105); Potassium 5.2 mmol/L (3.5-5.1); Sodium 140 mmol/L (136-145)
[2021-04-28] MEDS: Metoclopramide HCl 10 MG/2 ML VIAL IVP SCH (05:35)
[2021-04-28] MEDS: Lorazepam 2 MG/ML VIAL SLOW IVP PRN (06:04)
[2021-04-28] MEDS ORDERED: Magnesium 2 GM/50 ML 2 GM in Premix Bag 1 BAG IVPB SCH (06:15)
[2021-04-28] MEDS: Dexmedetomidine 1,000 MCG in Sodium Chloride 0.9% 250 ML 240 ML IVPB SCH ×2 (07:13→17:21)
[2021-04-28] MEDS: Pantoprazole 40 MG VIAL IVP SCH ×2 (08:08→20:46)
[2021-04-28] MEDS: Ascorbic Acid 500 mg Chewable Tablet PO SCH (08:08)
[2021-04-28] MEDS: Polyethylene Glycol 3350 17 GM Packet PER TUBE SCH (08:08)
[2021-04-28] MEDS: Senokot S 8.6-50 MG TAB PO SCH ×2 (08:08→20:49)
[2021-04-28] MEDS: Budesonide 0.5 MG/2 ML NEB NEB SCH ×2 (08:18→18:10)
[2021-04-28 12:29] VITALS: BMI 46.0
[2021-04-28] MEDS: Cholecalciferol 1,000 UNITS (25 MCG) TAB PO SCH (20:45)
[2021-04-28] MEDS: Acetaminophen 325 MG TAB PO PRN (23:15)
[2021-04-29] MEDS: Dexmedetomidine 1,000 MCG in Sodium Chloride 0.9% 250 ML 240 ML IVPB SCH ×2 (02:16→12:37)
[2021-04-29 06:42] LABS: Anion Gap 14 mmol/L (10-20); BUN (Urea Nitrogen) 78 mg/dL (9.8-20.1); Calc. Creatinine Clearance 62 mL/min (70-130); Calcium 8.1 mg/dL (7.8-10.44); Carbon Dioxide 27 mmol/L (22-29); Chloride 106 mmol/L (98-107); Glucose 131 mg/dL (70-105); Potassium 4.9 mmol/L (3.5-5.1); Sodium 142 mmol/L (136-145)
[2021-04-29 06:52] LABS: Band 28 % (5-11); Hemoglobin 7.2 g/dL (12.0-16.0); Lymphocytes 2 % (21-51); MDiff Complete? YES; Macrocytosis SLIGHT = 6-15 cells (100X) (0-5/hpf); Mean Corpuscular HGB CONC 32.6 g/dL (32.0-36.0); Mean Corpuscular Hemoglobin 32.2 pg (27.0-31.0); Mean Corpuscular Volume 98.6 fL (78.0-98.0); Mean Platelet Volume 12.8 fL (7.4-10.4); Metamyelocyte 3 % (0-0); Monocytes 3 % (0-10); Myelocyte 3 % (0-0); Neutrophil 61 % (42-75); Nucleated RBC 1 % (0); Platelet Count 47 thou/uL (130-400); Platelet Morphology Comment Appears Decreased; RBC Distribution Width 13.8 % (11.5-14.5); Red Blood Cell (RBC) Count 2.24 mill/uL (4.20-5.40); White Blood Cell (WBC) Count 8.1 thou/uL (4.8-10.8)
[2021-04-29] MEDS: Budesonide 0.5 MG/2 ML NEB NEB SCH (07:33)
[2021-04-29] MEDS: Senokot S 8.6-50 MG TAB PO SCH (09:38)
[2021-04-29] MEDS: Polyethylene Glycol 3350 17 GM Packet PER TUBE SCH (09:38)
[2021-04-29] MEDS: Pantoprazole 40 MG VIAL IVP SCH (09:39)
[2021-04-29] MEDS: Ascorbic Acid 500 mg Chewable Tablet PO SCH (09:39)
[2021-04-29 11:00] VITALS: TEMP 97.7
[2021-04-29 14:50] VITALS: BP 123/79
[2021-04-29] MEDS ORDERED: Lorazepam 2 MG/ML VIAL SLOW IVP PRN (15:55)
[2021-04-29] MEDS: Morphine 4 MG/ML VIAL SLOW IVP PRN ×3 (16:00→16:30)
[2021-04-29] MEDS ORDERED: Morphine 4 MG/ML VIAL SLOW IVP PRN (16:53)
== END 2021-04-29 18:16 | disposition expired | DRG 3 ==
LOC: ERS 08:14 → EDBD 08:14 → ERHOLD 08:52 → CCU 15:47
PROVIDERS: ADMIT Internal Medicine; ATTEND Internal Medicine
PROC: 5A1955Z Respiratory Ventilation, Greater than 96 Consecutive Hours (ICD-10-PCS; 2021-03-14)
PROC: 3E033XZ Introduction of Vasopressor into Peripheral Vein, Percutaneous Approach (ICD-10-PCS; 2021-03-14)
PROC: 8E0ZXY6 Isolation (ICD-10-PCS; 2021-03-14)
PROC: 0DH67UZ Insertion of Feeding Device into Stomach, Via Natural or Artificial Opening (ICD-10-PCS; 2021-03-14)
PROC: 02HV33Z Insertion of Infusion Device into Superior Vena Cava, Percutaneous Approach (ICD-10-PCS; 2021-03-14)
PROC: B548ZZA Ultrasonography of Superior Vena Cava, Guidance (ICD-10-PCS; 2021-03-14)
PROC: 3E0333Z Introduction of Anti-inflammatory into Peripheral Vein, Percutaneous Approach (ICD-10-PCS; principal; 2021-03-25)
PROC: 0BH18EZ Insertion of Endotracheal Airway into Trachea, Via Natural or Artificial Opening Endoscopic (ICD-10-PCS; 2021-03-31)
PROC: 5A1955Z Respiratory Ventilation, Greater than 96 Consecutive Hours (ICD-10-PCS; 2021-03-31)
PROC: 0B113F4 Bypass Trachea to Cutaneous with Tracheostomy Device, Percutaneous Approach (ICD-10-PCS; 2021-04-05)
PROC: 0DH63UZ Insertion of Feeding Device into Stomach, Percutaneous Approach (ICD-10-PCS; 2021-04-05)
PROC: 0B9K8ZZ Drainage of Right Lung, Via Natural or Artificial Opening Endoscopic (ICD-10-PCS; 2021-04-07)
PROC: 0BCB8ZZ Extirpation of Matter from Left Lower Lobe Bronchus, Via Natural or Artificial Opening Endoscopic (ICD-10-PCS; 2021-04-07)
PROC: 30233N1 Transfusion of Nonautologous Red Blood Cells into Peripheral Vein, Percutaneous Approach (ICD-10-PCS; 2021-04-12)
PROC: 0DU607Z Supplement Stomach with Autologous Tissue Substitute, Open Approach (ICD-10-PCS; 2021-04-23)
PROC: 0WQF0ZZ Repair Abdominal Wall, Open Approach (ICD-10-PCS; 2021-04-23)
PROC: 0DH60UZ Insertion of Feeding Device into Stomach, Open Approach (ICD-10-PCS; 2021-04-23)
DX: A41.89 Other specified sepsis (principal); R65.21 Severe sepsis with septic shock; U07.1 COVID-19; J12.82 Pneumonia due to coronavirus disease 2019; K63.1 Perforation of intestine (nontraumatic); J80 Acute respiratory distress syndrome; E43 Unspecified severe protein-calorie malnutrition; J44.1 Chronic obstructive pulmonary disease with (acute) exacerbation; J44.0 Chronic obstructive pulmonary disease with (acute) lower respiratory infection; E87.2 Acidosis; J45.52 Severe persistent asthma with status asthmaticus; E87.3 Alkalosis; G72.81 Critical illness myopathy; K94.23 Gastrostomy malfunction; N17.9 Acute kidney failure, unspecified; G93.49 Other encephalopathy; Z68.42 Body mass index [BMI] 45.0-49.9, adult; E87.0 Hyperosmolality and hypernatremia; E87.1 Hypo-osmolality and hyponatremia; Z66 Do not resuscitate; E66.01 Morbid (severe) obesity due to excess calories; E87.6 Hypokalemia; D69.59 Other secondary thrombocytopenia; R73.9 Hyperglycemia, unspecified; T38.0X5A Adverse effect of glucocorticoids and synthetic analogues, initial encounter; E87.5 Hyperkalemia; E83.39 Other disorders of phosphorus metabolism; D63.8 Anemia in other chronic diseases classified elsewhere; I10 Essential (primary) hypertension; K59.00 Constipation, unspecified; R60.9 Edema, unspecified; G62.9 Polyneuropathy, unspecified; K43.2 Incisional hernia without obstruction or gangrene; Y84.9 Medical procedure, unspecified as the cause of abnormal reaction of the patient, or of later complication, without mention of misadventure at the time of the procedure; D50.0 Iron deficiency anemia secondary to blood loss (chronic); B96.5 Pseudomonas (aeruginosa) (mallei) (pseudomallei) as the cause of diseases classified elsewhere; R62.7 Adult failure to thrive
CPT/HCPCS: 0240U; 31624; 36415; 36416; 36430; 36556; 36600; 51702; 71045; 74018; 74176; 80048; 80053; 80076; 80202; 81001; 81003; 81015; 82040; 82553; 82570; 82805; 83036; 83605; 83735; 83930; 83935; 84100; 84156; 84300; 84484; 84540; 85025; 86140; 86850; 86900; 86901; 87040; 87070; 87077; 87086; 87186; 87205; 93005; 94002; 94003; 94640; 94660; 96365; 96366; 96368; C9113; J0171; J0360; J0690; J0692; J1120; J1450; J1650; J1815; J1940; J1956; J2001; J2060; J2185; J2248; J2250; J2270; J2370; J2704; J2765; J2920; J3010; J3370; J3475; J3480; J3490; J7030; J7050; J7070; J7120; J7512; J7620; J7626; P9016; P9045; P9047; S0020